=== PATIENT | female | born 1960 | race African-American/Black ===

== ENCOUNTER 2018-04-01 11:08 | Inpatient (IN) | payer BC ==
[~2018-04-01] VITALS: Ht 172.7 cm; Wt 118.4 kg
--- OUTSIDE RECORDS SUMMARY | 2018-04-01 11:11 | XMS REPORT | Clinical Summary ---
Author Author [facility] Organization [facility] Address Unknown Phone Unavailable Care Team Providers Care Marketing Writer Name Role Phone Aramis Ngo MD PCP Allergies Comments Active Allergy Reactions Severity Noted Date Penicillins Rash Low 07/11/2016 Medications End Date Status Medication Sig Dispensed Refills Start Date Active anastrozole (ARIMIDEX) 1 daily. 0 mg chemo tablet 7 Active atorvastatin (LIPITOR) 20 TAKE 1 TABLET 3 MG tablet BY MOUTH AT 7 BEDTIME DIRECTED Active pantoprazole (PROTONIX) Take 40 mg by 3 40 MG EC tablet mouth every 7 morning. Active triamterene-hydrochloroth Take 1 0 iazid (DYAZIDE) 37.5-25 capsule by 7 mg per capsule mouth once daily. Active aspirin (ECOTRIN) 81 MG Take 81 mg by 0 enteric coated tablet mouth daily. Active SULFAMETHOXAZOLE, BULK, 1 tablet 2 0 MISC (two) times a day. Active Problems Problem Noted Date Personal history of malignant neoplasm of breast 09/13/2016 Social History Date Tobacco Use Types Packs/Day Years Used Never Smoker Smokeless Tobacco: Never Used Alcohol Use Drinks/Week oz/Week Comments Yes rarely Sex Assigned at Date Recorded Not on file Industry Job Start Date Occupation Not on file Not on file Not on file Travel End Travel History Travel Start No recent travel history available. Last Filed Vital Signs Not on file Plan of Treatment Health Maintenance Due Date Last Done Comments CERVICAL CANCER SCREENING 06/10/1980 BREAST CANCER SCREENING 06/10/2009 COLON CANCER SCREENING 06/10/2009 SHINGLES VACCINES (1 of 06/10/2009 2) INFLUENZA VACCINE 10/23/2017 Implants Device Identifier Shelf Expiration Date Model / Serial / Lot Implanted Type Area Manufactur er 2229 / / Drain Wound Hbls Round Radopaq Surgical N/A: N/A Trocar Nadia White 0.18in 15fr - Implants; [id number] Expanders; Implanted: 09/13/2016 (Quantity not Extenders; on file) Surgical Wires 2229 / / Drain Wound Hbls Round Radopaq Surgical N/A: N/A Trocar Nadia White 0.18in 15fr - Implants; [id number] Expanders; Implanted: 09/13/2016 (Quantity not Extenders; on file) Surgical Wires 2229 / / Drain Wound Hbls Round Radopaq Surgical N/A: N/A Trocar Nadia White 0.18in 15fr - Implants; [id number] Expanders; Implanted: 09/13/2016 (Quantity not Extenders; on file) Surgical Wires 2229 / / Drain Wound Hbls Round Radopaq Surgical N/A: N/A Trocar Nadia White 0.18in 15fr - Implants; [id number] Expanders; Implanted: 09/13/2016 (Quantity not Extenders; on file) Surgical Wires 2229 / / Drain Wound Hbls Round Radopaq Surgical N/A: N/A Trocar Nadia White 0.18in 15fr - Implants; [id number] Expanders; Implanted: 09/13/2016 (Quantity not Extenders; on file) Surgical Wires 2229 / / Drain Wound Hbls Round Radopaq Surgical N/A: N/A Trocar Nadia White 0.18in 15fr - Implants; [id number] Expanders; Implanted: 09/13/2016 (Quantity not Extenders; on file) Surgical Wires [id number] / / [employer] Programmer Flow Vessel 3.5mm Assembly Surgical Right: N/A MICRO - [id number] Implants; COMPANIES Implanted: Qty: 1 on 09/13/2016 by Expanders; Nas Walter MD PhD Extenders; Surgical Wires [id number] / / [employer] Programmer Anstc Artrl Flow 3mm Hear Surgical Left: N/A MICRO - [id number] Implants; COMPANIES Implanted: Qty: 1 on 09/13/2016 by Expanders; Nas Walter MD PhD Extenders; Surgical Wires 2229 / / Drain Wound Hbls Round Radopaq Surgical N/A: N/A Trocar Nadia White 0.18in 15fr - Implants; [id number] Expanders; Implanted: 12/25/2016 (Quantity not Extenders; on file) Surgical Wires 2229 / / Drain Wound Hbls Round Radopaq Surgical N/A: N/A Trocar Nadia White 0.18in 15fr - Implants; [id number] Expanders; Implanted: 12/25/2016 (Quantity not Extenders; on file) Surgical Wires Results Not on fileafter 03/31/2017 Insurance Payer Benefit Subscriber ID Type Phone Address Plan / Group BCBS BCBS xxxxxxxxxxxx PPO CHOICE PPO/JOE ROMERO PPO Surgery Advance Directives Patient has advance care planning documents on file. For more information, reyna riggins contact: Kavon Hercules [address] [place] [address]
--- OUTSIDE RECORDS SUMMARY | 2018-04-01 11:11 | XMS REPORT ---
Author Author [facility] Address Unknown Phone Unavailable Care Team Providers Care Vinyl Welder And Fabricator Name Role Phone Unavailable Unavailable Payers Payer Name Policy Type Policy Number Effective Date Expiration Date Problems This patient has no known problems. Allergies, Adverse Reactions, Alerts Allergy Name Allergy Type Status Severity Reaction(s) Onset Date Inactive Date Treating Clinician Comments Penicillins DA Active U 2015-12-01 00:00:00 cefepime DA Active MO 2015-12-01 00:00:00 Medications This patient has no known medications.
[2018-04-01 11:56] LABS: BASOPHILS % 0.6 % (0.0-1.0); EOSINOPHILS % 0.6 % (0.0-6.0); HEMATOCRIT 41.2 % (34.2-44.1); HEMOGLOBIN 13.4 g/dL (12.0-16.0); LYMPHOCYTES # (AUTO) 0.9 (1.0-3.2); LYMPHOCYTES % 24.6 % (18.0-39.1); MEAN CORPUSCULAR HEMOGLOBIN 29.6 pg (28-32); MEAN CORPUSCULAR HGB CONC 32.5 g/dL (31-35); MEAN CORPUSCULAR VOLUME 91.2 fL (81-99); MONOCYTES # (AUTO) 0.5 (0.2-0.8); MONOCYTES % 14.7 % (4.4-11.3); NEUTROPHILS # (AUTO) 2.1 (2.1-6.9); NEUTROPHILS % 59.2 % (38.7-80.0); PLATELET COUNT 283 x10e3/uL (140-360); RED BLOOD COUNT 4.52 x10e6/uL (3.6-5.1); RED CELL DISTRIBUTION WIDTH 13.2 % (11.7-14.4)
[2018-04-01 12:07] LABS: INR 0.95; PROTHROMBIN TIME 13.5 seconds (11.9-14.5)
[2018-04-01 12:15] LABS: ANION GAP 14.5 mmol/L (8-16); BLOOD UREA NITROGEN 14 mg/dL (7-26); BUN/CREATININE RATIO 16 (6-25); CALCIUM 10.3 mg/dL (8.4-10.2); CARBON DIOXIDE 25 mmol/L (22-29); CHLORIDE 102 mmol/L (98-107); CREATININE, SERUM 0.87 mg/dL (0.57-1.11); EST GLOMERULAR FILTRATION RATE > 60 ML/MIN (60-); GLUCOSE 89 mg/dL (74-118); POTASSIUM 3.5 mmol/L (3.5-5.1); SODIUM 138 mmol/L (136-145)
--- NOTE | 2018-04-01 12:17 | NUR ---
IV PLACED TO PATIENT L. HAND, PER PATIENT RECOMMENDATION; PATIENT STATES VEINS AREN'T GOOD IN EITHER ARM AND POINTED TO L. HAND FOR IV STICK
--- NOTE | 2018-04-01 13:12 | Diagnostic Imaging Report ---
EXAMINATION: CHEST 2 VIEWS INDICATION: Assess for fluid. COMPARISON: None FINDINGS: TUBES and LINES: None. LUNGS/PLEURA: Low lung volumes which decreases sensitivity and specificity for pathology. There is perihilar fullness and indistinctness of the pulmonary vasculature. There is a moderate left and a small right pleural effusion. Patchy opacities are present at the lung bases. No evidence of pneumothorax. HEART AND MEDIASTINUM: Mild enlargement of the cardiomediastinal silhouette. BONES AND SOFT TISSUES: No acute osseous lesion. Surgical clips project over the left axilla. UPPER ABDOMEN: No free air under the diaphragm. IMPRESSION: Mild pulmonary interstitial edema with moderate left and small right pleural effusion with associated patchy opacities of the lung bases, likely atelectasis. Signed by: Dr. Tenzin Stapleton MD on 04/01/2018 1:09 PM
--- OUTSIDE RECORDS SUMMARY | 2018-04-01 15:03 | XMS REPORT | Clinical Summary ---
Author Author [facility] Organization [facility] Address Unknown Phone Unavailable Care Team Providers Care Men'S Furnishings Salesperson Name Role Phone Aramis Ngo MD PCP [...] Trocar Nadia White 0.18in 15fr - Implants; [id number] Expanders; Implanted: 09/13/2016 (Quantity not Extenders; on file) Surgical Wires 2229 / / Drain Wound Hbls Round Radopaq Surgical N/A: N/A Trocar Nadia White 0.18in 15fr - Implants; [id number] Expanders; Implanted: 09/13/2016 (Quantity not Extenders; on file) Surgical Wires 2229 / / Drain Wound Hbls Round Radopaq Surgical N/A: N/A Trocar Nadia White 0.18in 15fr - Implants; [id number] Expanders; Implanted: 09/13/2016 (Quantity not Extenders; on file) Surgical Wires 2229 / / Drain Wound Hbls Round Radopaq Surgical N/A: N/A Trocar Nadia White 0.18in 15fr - Implants; [id number] Expanders; Implanted: 09/13/2016 (Quantity not Extenders; on file) Surgical Wires 2229 / / Drain Wound Hbls Round Radopaq Surgical N/A: N/A Trocar Nadia White 0.18in 15fr - Implants; [id number] Expanders; Implanted: 09/13/2016 (Quantity not Extenders; on file) Surgical Wires 2229 / / Drain Wound Hbls Round Radopaq Surgical N/A: N/A Trocar Nadia White 0.18in 15fr - Implants; [id number] Expanders; Implanted: 09/13/2016 (Quantity not Extenders; on file) Surgical Wires [id number] / / Metal Sash Setter Flow Vessel 3.5mm Assembly Surgical Right: N/A MICRO - [id number] Implants; COMPANIES Implanted: Qty: 1 on 09/13/2016 by Expanders; Nas Walter MD PhD Extenders; Surgical Wires [id number] / / Metal Sash Setter Anstc Artrl Flow 3mm Hear Surgical Left: N/A MICRO - [id number] Implants; COMPANIES Implanted: Qty: 1 on 09/13/2016 by Expanders; Nas Walter MD PhD Extenders; Surgical Wires 2229 / / Drain Wound Hbls Round Radopaq Surgical N/A: N/A Trocar Nadia White 0.18in 15fr - Implants; [id number] Expanders; Implanted: 12/25/2016 (Quantity not Extenders; on file) Surgical Wires 2229 / / Drain Wound Hbls Round Radopaq Surgical N/A: N/A Trocar Nadia White 0.18in 15fr - Implants; [id number] Expanders; Implanted: 12/25/2016 (Quantity not Extenders; on file) Surgical Wires Results Not on fileafter 03/31/2017 Insurance Payer Benefit Subscriber ID Type Phone Address Plan / Group BCBS BCBS xxxxxxxxxxxx PPO CHOICE PPO/JOE ROMERO PPO Surgery Advance Directives Patient has advance care planning documents on file. For more information, reyna riggins contact: Kavon Hercules [address] [facility] [place] [address]
--- NOTE | 2018-04-01 15:50 | NUR ---
PATIENT SENT TO IR FOR THORACENTESIS; UNCERTAIN OF TIME THAT PATIENT WENT TO PROCEDURE, BUT SPOKE WITH IR NURSE REGARDING CONSENTS NOT BEING COMPLETED; INFORMED IR THAT PATIENT WAS NOT CONSENT DUE TO UNCERTAINTY OF PROCEDURE AND PATIENT WAS NOT IN ROOM YET;
--- NOTE | 2018-04-01 17:52 | Diagnostic Imaging Report ---
Procedure: Ultrasound-guided left diagnostic and therapeutic thoracentesis teletype or varitype keyboard operator: Tenzin Stapleton MD Pre-operative diagnosis: Large left pleural effusion. Post-operative diagnosis: Small left pleural effusion status post thoracentesis. Sedation: Local (1% subcutaneous lidocaine) Estimated blood loss: Minimal Implants: None TECHNIQUE/FINDINGS: Informed consent was obtained from the patient and documented in the medical record. The patient was placed in the upright position. The left posterior chest was prepped and draped in standard sterile fashion. Initial ultrasound demonstrated large left pleural effusion. Subsequently, 1% lidocaine was infiltrated into the skin and subcutaneous tissues for local anesthesia. Then under continuous sonographic guidance, a 5 Fr catheter was advanced into the left pleural space. The catheter was advanced off the needle and connected to vacuum bottle with subsequent evacuation of 1000 cc of serous fluid. The catheter was removed and a sterile, occlusive dressing was applied. Sample was sent to the lab. The patient tolerated the procedure well. IMPRESSION: Large left pleural effusion. Ultrasound-guided left diagnostic and therapeutic thoracentesis with removal of 1000 cc of serous fluid. Small residual pleural effusion post procedurally. Signed by: Dr. Tenzin Stapleton MD on 04/01/2018 5:49 PM
--- NOTE | 2018-04-01 17:52 | Diagnostic Imaging Report ---
Procedure: Ultrasound-guided left diagnostic and therapeutic thoracentesis punch press operator helper: Tenzin Stapleton MD Pre-operative diagnosis: Large left pleural effusion. Post-operative diagnosis: Small left pleural effusion status post thoracentesis. Sedation: Local (1% subcutaneous lidocaine) Estimated blood loss: Minimal Implants: None TECHNIQUE/FINDINGS: Informed consent was obtained from the patient and documented in the medical record. The patient was placed in the upright position. The left posterior chest was prepped and draped in standard sterile fashion. Initial ultrasound demonstrated large left pleural effusion. Subsequently, 1% lidocaine was infiltrated into the skin and subcutaneous tissues for local anesthesia. Then under continuous sonographic guidance, a 5 Fr catheter was advanced into the left pleural space. The catheter was advanced off the needle and connected to vacuum bottle with subsequent evacuation of 1000 cc of serous fluid. The catheter was removed and a sterile, occlusive dressing was applied. Sample was sent to the lab. The patient tolerated the procedure well. IMPRESSION: Large left pleural effusion. Ultrasound-guided left diagnostic and therapeutic thoracentesis with removal of 1000 cc of serous fluid. Small residual pleural effusion post procedurally. Signed by: Dr. Tenzin Stapleton MD on 04/01/2018 5:49 PM
--- NOTE | 2018-04-01 17:56 | Diagnostic Imaging Report ---
EXAMINATION: CHEST XRAY POST PROCEDURE INDICATION: Status post left thoracentesis. COMPARISON: Chest radiograph 04/01/2018 at 1240PM. FINDINGS: TUBES and LINES: None. LUNGS/PLEURA: Low lung volumes which decreases sensitivity and specificity for pathology. There is perihilar fullness and indistinctness of the pulmonary vasculature. Status post interval left thoracentesis with residual small left pleural effusion. Persistent small right pleural effusion. Patchy opacities at the lung bases. No evidence of pneumothorax. HEART AND MEDIASTINUM: Mild enlargement of the cardiomediastinal silhouette. BONES AND SOFT TISSUES: No acute osseous lesion. Surgical clips project over the left axilla. UPPER ABDOMEN: No free air under the diaphragm. IMPRESSION: Status post left-sided thoracentesis with decreased left-sided pleural effusion, now small. No evidence of pneumothorax. Mild pulmonary interstitial edema with small right pleural effusion. Patchy opacities at the lung bases, likely atelectasis, although pneumonia is possible in the appropriate clinical context. Signed by: Dr. Tenzin Stapleton MD on 04/01/2018 5:52 PM
[2018-04-01 18:21] VITALS: BP 141/100
--- NOTE | 2018-04-01 18:33 | NUR ---
Received patient. Patient A/O X3, short of breath. Bowel movement this morning, bowel sounds present. Patient is ambulatory. Bilateral diminished breath sounds, left side is more diminished. Patient complaint of pain during cough. Dressing on left lower back from thoracentesis intact. Left limb alert. Right 20 gauge in AC, saline locked. Call light in reach, bed in lowest position, side rails up x2, bed wheels locked. Will continue to monitor.
[2018-04-01 19:59] LABS: BODY FLUID APPEARANCE CLOUDY; BODY FLUID COLOR RED; BODY FLUID TYPE PLEURAL
[2018-04-01 20:00] VITALS: BP 150/91
[2018-04-01 20:02] LABS: RBC,BODY FLUID 6555 cells/uL; WBC,BODY FLUID 65 cells/uL
[2018-04-01] MEDS: MORPHINE SULFATE INJ 4 MG/ML INJ IV PRN (20:41)
[2018-04-01 21:59] LABS: LYMPHOCYTES,BODY FLUID 10 %; MONO/MACROPHG,BODY FLUID 0 %; NEUTROPHILS,BODY FLUID 90 %
[2018-04-02] VITALS (7 sets, daily range): BP systolic 121–141; BP diastolic 70–85
[2018-04-02] MEDS: VANCOMYCIN 1GM/NS 250 ML 250 ML IV SCH ×4 (03:20→21:00)
[2018-04-02] MEDS ORDERED: ATORVASTATIN CA20 MG PO (06:01)
[2018-04-02] MEDS ORDERED: ANASTROZOLE1 MG (06:02)
[2018-04-02] MEDS ORDERED: ASPIRIN81 MG (06:02)
[2018-04-02] MEDS ORDERED: DYAZIDE 37.5-21 EACH (06:02)
[2018-04-02] MEDS ORDERED: PANTOPRAZOLE SO40 MG PO (06:02)
[2018-04-02 06:04] LABS: BASOPHILS % 0.8 % (0.0-1.0); EOSINOPHILS % 1.1 % (0.0-6.0); HEMATOCRIT 41.4 % (34.2-44.1); HEMOGLOBIN 13.4 g/dL (12.0-16.0); LYMPHOCYTES # (AUTO) 0.9 (1.0-3.2); MEAN CORPUSCULAR HEMOGLOBIN 29.6 pg (28-32); MEAN CORPUSCULAR HGB CONC 32.4 g/dL (31-35); MEAN CORPUSCULAR VOLUME 91.4 fL (81-99); MONOCYTES # (AUTO) 0.5 (0.2-0.8); MONOCYTES % 13.1 % (4.4-11.3); NEUTROPHILS # (AUTO) 2.1 (2.1-6.9); NEUTROPHILS % 58.7 % (38.7-80.0); PLATELET COUNT 287 x10e3/uL (140-360); RED BLOOD COUNT 4.53 x10e6/uL (3.6-5.1); RED CELL DISTRIBUTION WIDTH 13.2 % (11.7-14.4)
[2018-04-02 06:20] LABS: ANION GAP 13.3 mmol/L (8-16); BLOOD UREA NITROGEN 13 mg/dL (7-26); BUN/CREATININE RATIO 15 (6-25); CALCIUM 10.1 mg/dL (8.4-10.2); CARBON DIOXIDE 24 mmol/L (22-29); CHLORIDE 101 mmol/L (98-107); CREATININE, SERUM 0.87 mg/dL (0.57-1.11); EST GLOMERULAR FILTRATION RATE > 60 ML/MIN (60-); GLUCOSE 96 mg/dL (74-118); POTASSIUM 3.3 mmol/L (3.5-5.1); SODIUM 135 mmol/L (136-145)
--- NOTE | 2018-04-02 06:27 | Diagnostic Imaging Report ---
CHEST SINGLE (PORTABLE), 04/02/2018 7:00 AM Technique: CHEST SINGLE (PORTABLE) Comparison: Previous day Clinical history: Pleural effusion Findings: See Impression Impression: 1. Lines/Tubes: Left axillary clips 2. Partially layering pleural effusions with associated atelectasis and/or edema. Cardiomediastinal silhouette is obscured. Signed by: Dr Yolanda Oliveira MD on 04/02/2018 6:24 AM
[2018-04-02] MEDS ORDERED: POTASSIUM CHLORIDE 20MEQ/100ML 100 ML IV ONE (09:00)
[2018-04-02] MEDS ORDERED: AZITHROMYCIN 500MG/NS 250 ML 250 ML IV SCH (09:00)
[2018-04-02] MEDS ORDERED: CEFTRIAXONE SOD 1 GM/NS 50 ML 50 ML IV SCH (09:30)
[2018-04-02] MEDS ORDERED: SODIUM CHLORIDE 0.9% 250ML 250 ML ONE (09:54)
[2018-04-02] MEDS: SODIUM CHLORIDE FLUSH 10 ML SYR INJ PRN ×2 (10:26→11:25)
[2018-04-02] MEDS: ONDANSETRON HCL INJ 2 MG/ML VIAL IV PRN (11:25)
[2018-04-02] MEDS: MORPHINE SULFATE INJ 4 MG/ML INJ IV PRN (11:26)
--- NOTE | 2018-04-02 12:34 | NUR ---
PAGED DR. Celena MATHEWS, TO ASK HIM IF HOME MEDICATIONS COULD BE RESUMED, RECEIVED ORDERS TO START PATIENT'S HOME MEDICATIONS.
--- NOTE | 2018-04-02 13:17 | Consultation ---
DATE OF CONSULTATION: April 02, 2018 PULMONARY CONSULTATION REASON FOR CONSULTATION: Pleural effusion. ATTENDING PHYSICIAN: Dr. Bridgett Anderson. HISTORY OF PRESENT ILLNESS: Ms. Del Castillo is a 57-year-old woman with a history of breast cancer diagnosed in approximately 2016. She was treated with a mastectomy, chemotherapy and radiation. She subsequently had reconstructive surgery in about 2017 or so and has had nothing for the last year. She has been maintained on anastrozole. She has been having increasing shortness of breath for the last couple weeks, some dry cough at times but no fevers, chills, night sweats or weight loss. She denies chest pain. She was found to have a pleural effusion on the left side and had a thoracentesis here. She was also treated for pneumonia with Levaquin by her PCP. PAST MEDICAL HISTORY: In addition to the breast cancer she has hypertension, hypercholesterolemia and reflux. PAST SURGICAL HISTORY: Except as described above she has had a tubal ligation. SOCIAL HISTORY: Negative for tobacco. She does drink on rare occasion. There is no history of drug use. 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 FAMILY HISTORY: Noncontributory. REVIEW OF SYSTEMS: As described above. PHYSICAL EXAMINATION VITAL SIGNS: She is afebrile. Heart rate is around 114, respiratory rate 16, and oxygen saturation is 96%, blood pressure 132/82. GENERAL APPEARANCE: This is a pleasant woman sitting up in the hospital bed. HEENT: Head is normocephalic, atraumatic. Pupils round and reactive. Mucous membranes are moist. NECK: Supple. Trachea is midline. There is no lymphadenopathy. HEART: Has a regular rate and rhythm without murmurs, rubs or gallops. CHEST: Has decreased breath sounds on the left, is otherwise clear on the right. ABDOMEN: Soft, nontender. EXTREMITIES: Have no cyanosis, clubbing or edema. SKIN: Warm and dry without rash. NEUROLOGICALLY: She is awake, alert and nonfocal. Insight is appropriate. Speech is clear. LAB AND IMAGING DATA: Reviewed. She had a chest x-ray yesterday that shows some mild pulmonary interstitial change with a right greater than left pleural effusion. There were additional patchy opacities of the left base. She had a thoracentesis done today as well, of which 1000 mL of fluid was removed from the left chest. Coags are normal. Chemistry is not particularly remarkable. Her calcium is mildly elevated at 10.3. BUN and creatinine are 14 and 0.87. White count, she is leukopenic and has monocytosis. Hemoglobin and hematocrit are 13 and 41. The thoracentesis fluid was red in color, cloudy, 65 white blood cells, over 6000 red blood cells with 90% neutrophils and 10% lymphocytes and a few macrophages seen on the slide. Total protein is 5.3. LDH is 131. ASSESSMENT: 1. Pleural effusion bilateral, left greater than right. Etiology is unclear. It is an exudate, as the protein is markedly elevated. Etiology or differential includes parapneumonic, malignancy, pulmonary embolism most commonly, could be also secondary to rheumatologic disease. 2. Breast cancer, personal history. 3. Shortness of breath RECOMMENDATIONS AND PLAN: Will follow the pleural fluid cytology. Will get a CT angio. Further recommendations pending results and findings. Case was discussed with the nurse and plan with the patient. Job#: [id number] EV MTDD
--- NOTE | 2018-04-02 20:00 | NUR ---
Patient visited in room during nursing rounds. Pt alert and oriented x3. at bedside. Right upper arm IV appear to be infiltrated and was taken out. Charge nurse asked for assistance to start new IV. Patient ambulatory prn. No dyspnea. Band aid on left upper back s/p thoracentesis. Call dong within reach.
--- NOTE | 2018-04-02 21:00 | NUR ---
New IV attempted by Charge nurse (TARSHA Potter) 3 times but unsuccessful. New IV attempted by TARSHA Jones twice but unsuccessful. Scheduled Vanc IV will be delayed till new IV placed.
[2018-04-02] MEDS: ATORVASTATIN 20 MG TAB PO SCH (21:40)
--- NOTE | 2018-04-02 22:00 | NUR ---
New IV attempted by primary nurse (TARSHA Goodrich) twice but unsuccessful.
--- NOTE | 2018-04-02 23:00 | NUR ---
New IV attempted by ER nurse (Princess) twice but unsuccessful.
--- NOTE | 2018-04-03 02:50 | NUR ---
New IV placed by another ER nurse and successfully placed on right hand 20g. IV Vanc to be restarted and IV pain med to be given per pt request.
--- NOTE | 2018-04-03 03:00 | NUR ---
Patient agreed to have central line placement (possibly on neck) this morning and pt signed consent form. Radiology dept aware.
[2018-04-03] MEDS: MORPHINE SULFATE INJ 4 MG/ML INJ IV PRN (03:20)
[2018-04-03] MEDS: VANCOMYCIN 1GM/NS 250 ML 250 ML IV SCH ×2 (03:30→15:30)
[2018-04-03 04:00] VITALS: BP 129/79
[2018-04-03 05:46] LABS: HEMATOCRIT 40.3 % (34.2-44.1); MEAN CORPUSCULAR HEMOGLOBIN 29.7 pg (28-32); MEAN CORPUSCULAR HGB CONC 32.3 g/dL (31-35); PLATELET COUNT 278 x10e3/uL (140-360); RED BLOOD COUNT 4.38 x10e6/uL (3.6-5.1); RED CELL DISTRIBUTION WIDTH 13.1 % (11.7-14.4)
[2018-04-03] MEDS: AZITHROMYCIN 500MG/NS 250 ML 250 ML IV SCH (05:53)
[2018-04-03 06:14] LABS: ALANINE AMINOTRANSFERASE 29 IU/L (0-55); ALBUMIN 2.9 g/dL (3.5-5.0); ALBUMIN/GLOBULIN RATIO 0.7 (0.8-2.0); ALKALINE PHOSPHATASE 106 IU/L (40-150); ANION GAP 12.6 mmol/L (8-16); BLOOD UREA NITROGEN 10 mg/dL (7-26); BUN/CREATININE RATIO 12 (6-25); CALCIUM 9.9 mg/dL (8.4-10.2); CARBON DIOXIDE 24 mmol/L (22-29); CHLORIDE 100 mmol/L (98-107); CREATININE, SERUM 0.83 mg/dL (0.57-1.11); EST GLOMERULAR FILTRATION RATE > 60 ML/MIN (60-); GLUCOSE 94 mg/dL (74-118); POTASSIUM 3.6 mmol/L (3.5-5.1); SODIUM 133 mmol/L (136-145)
--- NOTE | 2018-04-03 07:05 | NUR ---
Received patient sitting upright in bed, call light within reach. AAOX4 to time, person, place. Respirations even and unlabored. Instructed patient to use call light for assistance. Voiced understanding. Will continue to monitor.
[2018-04-03 08:00] VITALS: BP 122/72
[2018-04-03 09:15] VITALS: BP 122/72
[2018-04-03] MEDS: ANASTROZOLE 1 MG TAB PO SCH (09:18)
[2018-04-03] MEDS: PANTOPRAZOLE SOD 40 MG TABEC PO SCH (09:18)
[2018-04-03] MEDS: ASPIRIN 81 MG CHEW TAB PO SCH (09:18)
[2018-04-03] MEDS: TRIAMTERENE/HCTZ 37.5-25 MG TAB PO SCH (09:18)
--- NOTE | 2018-04-03 09:18 | NUR ---
Per radiology, patient was "too anxious to have central cath placed, will attempt at 1pm" Dr. Anderson aware. See orders
--- NOTE | 2018-04-03 09:37 | Diagnostic Imaging Report ---
Date and Time: 04/03/2018 Procedure: Right internal jugular central venous catheter, aborted universal grinder operator: Dr. Umanzor Pre-operative diagnosis: Poor intravenous access Post-operative diagnosis: Poor intravenous access Conscious Sedation: None Additional Medications: Lidocaine 1% for local anesthesia Fluoroscopy time: 0 Contrast used: 0 Estimated blood loss: Less than 10 cc Blood products administered: None Specimens: None Implants: None DISCUSSION: Informed consent was obtained and documented in the medical record after discussion of risks and benefits. The patient was placed in the supine position on the fluoroscopic table. Preliminary sonographic evaluation confirmed patency of the right internal jugular vein, evidenced by compressibility. The right cervical region was then prepped and draped in the standard sterile fashion. 1% lidocaine was infiltrated into the skin and subcutaneous tissues for local anesthesia. Then under continuous sonographic guidance, the right internal jugular vein was accessed with an 18-gauge singlewall needle. A permanent sonographic image was stored in the medical record. Shortly after obtaining access into the right internal jugular vein, the patient became extremely agitated, and proceeded to move to the sitting position and contaminate the sterile field. At this point, the needle was quickly removed from the patient and hemostasis was achieved with manual compression. The patient declined to continue with the procedure. A final sonographic image shows no significant perivenous hematoma. A sterile dressing was applied. FINDINGS: Patent right internal jugular vein. IMPRESSION: Aborted placement of right internal jugular central venous catheter secondary to extreme patient agitation as detailed above. Consideration may be given to repeat attempt at central venous catheter placement with moderate sedation, or placement of a peripherally inserted central catheter (PICC). Signed by: Dr. Aramis Umanzor M.D. on 04/03/2018 9:33 AM
[2018-04-03 10:30] LABS: EOSINOPHILS % (MANUAL) 1 % (0-7); LYMPHOCYTES % (MANUAL) 30 % (19-48); MONOCYTES % (MANUAL) 9 % (3.4-9.0); NEUTROPHILS % (MANUAL) 59 % (40-74)
[2018-04-03 10:31] LABS: ANISOCYTOSIS SLIGHT; HYPOCHROMASIA SLIGHT; PLATELET ESTIMATE ADEQUATE; RBC MORPHOLOGY COMMENT NORMAL
[2018-04-03 10:32] LABS: PLATELET MORPHOLOGY COMMENT NORMAL
--- NOTE | 2018-04-03 10:34 | History and Physical ---
Nguyen Del Castillo is a 57-year-old black female who was fairly symptomatic with shortness of breath with bilateral pleural effusions. Subsequently, was sent to the ER. The patient was subsequently admitted. I have spoken to , interventional radiologist, who tapped her today since the patient was very symptomatic. SOCIAL HISTORY: Noncontributory. FAMILY HISTORY: Noncontributory. HISTORY OF PAST ILLNESS: History of breast cancer, stage III, diagnosed in November of 2014. The patient had neoadjuvant chemotherapy since this was a stage III cancer with regional lymph nodes. Subsequently, had a mastectomy. There was residual invasive ductal carcinoma, 1.7 cm. Eight axillary lymph nodes were negative. Subsequently, the patient had reconstruction. The patient was also treated with radiation therapy, which she had completed on February 23, 2016. Reconstruction was done on September 13, 2016. SOCIAL HISTORY: Noncontributory. FAMILY HISTORY: Noncontributory. ALLERGIES: EVEN IT IS RECORDED NONE HERE, SHE CLAIMS THAT SHE HAD A RASH WITH PENICILLIN. REVIEW OF SYSTEMS HEENT: Normal. CARDIAC: Normal. RESPIRATORY: At the present time, bilateral pleural effusions. GI: Normal. : Normal. MUSCULOSKELETAL: Normal. SKIN AND BREASTS: Normal. PHYSICAL EXAMINATION GENERAL: A large built female with no palpable adenopathy. HEART: Within normal limits. LUNGS: Diminished breath sounds at both bases. ABDOMEN: Obese. RECTAL: Deferred. AN/SQQ 89(V)15 SONAR SYSTEM JOURNEYMAN: Essentially normal. EXTREMITIES: Essentially normal. IMPRESSION 1. Status post left mastectomy, stage IV breast cancer with subcarinal lymph nodes. 2. History of gastroesophageal reflux disease. 3. Hypertension. 4. Pleural effusions. PLAN: Tap the effusion. Further treatment depending on the diagnosis. Clinically, she had bronchopneumonia. She was treated as an outpatient. I will continue with treatment. Appropriate cultures will be done. Pulmonology consultation will be obtained. Job#: [id number] RI cc:DOROTHY AVERY MD
[2018-04-03 14:52] LABS: ANION GAP 12.4 mmol/L (8-16); POTASSIUM 3.4 mmol/L (3.5-5.1)
--- NOTE | 2018-04-03 15:20 | NUR ---
CASE MANAGEMENT INITIAL ASSESSMENT Relief Charge Nurse to bedside to discuss plan of care with patient/family. CM/SW role and care transitions discussed. Anticipated discharge plan discussed along with duration of care. CM discussed patients right to make decisions in care. CM/SW work hours given. Patient lives: PATIENT LIVES IN [place], [place] WITH IN [address] STORY HOME Admit/Transfer: ED POA/Emergency contact: : BRITNEY HERNANDEZ: [phone]/ DAUGHTER KATY WRIGHT: [phone] Current/Previous Home Health: NONE PCP/Follow-up Care: DR. DOROTHY AVERY Current/Previous DME: NONE Other Services: N/A Employment Status: EMPLOYED Areas of Concerns: NONE AT THIS TIME Referral Needs: NONE AT THIS TIME Education Needs: N/A IMM/ASHLEY given and signed (if applicable): N/A Goal for discharge: DISCHARGE HOME WITH NO NEEDS CM left business card at the bedside with contact information. Name and number was also written on the patients whiteboard. Patient verbalized understanding of discussion. CM will follow-up with ongoing discharge and transition of care needs.
[2018-04-03 15:30] VITALS: BP 126/75
[2018-04-03] MEDS ORDERED: SODIUM CHLORIDE 0.9% 250ML 250 ML ONE (15:48)
--- NOTE | 2018-04-03 16:20 | Diagnostic Imaging Report ---
Examination: Single AP view of the chest. COMPARISON: Portable chest 04/02/2018 INDICATION: PICC line placement, pleural effusions IMPRESSION: 1. Lines and Tubes: Interval placement of right-sided PICC line, which has distal tip projecting approximately the proximal to mid SVC. 2. Otherwise, no significant interval change since the prior exam. Signed by: Dr. Timur Rahman M.D. on 04/03/2018 4:17 PM
[2018-04-03 16:55] VITALS: BP 125/86
--- NOTE | 2018-04-03 17:39 | Diagnostic Imaging Report ---
EXAM: CT Chest WITH contrast 04/03/2018 12:11 PM INDICATION: Pulmonary embolism. Shortness of breath. Pleural effusion. Breast cancer. COMPARISON: None TECHNIQUE: Chest was scanned utilizing a multidetector helical scanner from the lung apex through the level of the adrenal glands without administration of IV contrast. Coronal and sagittal reformations were obtained. Pulmonary embolism protocol was performed. IV CONTRAST: 100 mL of Isovue 300 RADIATION DOSE: Total DLP: 653.82 mGy*cm Estimated effective dose: (DLP x 0.014 x size factor) mSv COMPLICATIONS: None FINDINGS: LINES/ TUBES: Right upper extremity PICC with distal tip within the low right atrium. LUNGS AND AIRWAYS: 1.8 cm nodule in the superior segment of the right lower lobe anteriorly on image 70 series 2. Bilateral pulmonary venous congestion. Pleural parenchymal density along the anterior left hemithorax suggestive of post radiation change. Lingular subsegmental atelectasis smoking, exclude underlying mass in the lingula as seen on images 60 series 2. No filling defects within the pulmonary arteries to the subsegmental level. PLEURA: Moderate volume pleural effusion bilaterally, with loculation in the left upper lobe with fluid within the interlobar fissure. HEART AND MEDIASTINUM: Suspected small lymph nodes in the left internal mammary chain as seen on axial images 36 and 37 series 2. No mediastinal, hilar or axillary lymphadenopathy. The heart is normal in size.. There is trace pericardial effusion. UPPER ABDOMEN: Limited non-contrast views of the upper abdomen show no abnormality within the visualized liver, spleen, pancreas, or kidneys. The adrenal glands are normal. BONES: Small sclerotic lesion in the T11 vertebral body is nonspecific, possibly a bone island, however, demonstrated small sclerotic metastatic focus. SOFT TISSUES: Status post left axillary lymph node dissection. IMPRESSION: 1. No pulmonary embolism to the segmental level. 2. Bilateral moderate volume pleural effusions with large loculation the left upper lobe. No pneumothorax. 3. 1.8 cm nodule in the superior segment of the right lower lobe anteriorly. Possible underlying mass in the lingula not well evaluated due to associated atelectasis. 4. Mild pulmonary venous congestion and pulmonary edema. Signed by: Dr. Boyd Covington M.D. on 04/03/2018 5:36 PM
[2018-04-03] MEDS ORDERED: IOPAMIDOL 370 MG/ML 200 ML INFUS..BTL INJ ONE (18:21)
[2018-04-03] MEDS ORDERED: SODIUM CHLORIDE 0.9% 50ML 50 ML ONE (18:21)
--- NOTE | 2018-04-03 18:30 | NUR ---
Resting in bed. No s/s of acute distress noted. Report to be given to oncoming nurse.
--- NOTE | 2018-04-03 19:50 | NUR ---
Patient visited in room during nursing rounds. Pt alert and oriented x3. Sister at bedside visiting. New PICC line on right upper arm saline locked and right hand 20g IV saline locked. Patient denies dyspnea but with mild aching pain on left upper back (previous thoracentesis insertion site). Patient ambulatory prn. No dyspnea. Call dong within reach.
[2018-04-03 20:00] VITALS: BP 154/93
[2018-04-03] MEDS: ATORVASTATIN 20 MG TAB PO SCH (20:20)
--- NOTE | 2018-04-03 20:35 | NUR ---
Paged Dr. Gonzalez (Medical Review Specialist) to report CT chest results. Awaiting on MD call back.
--- NOTE | 2018-04-03 20:41 | NUR ---
Received call back from Dr. Go Bashir (Production Trainer covering for Dr. Gonzalez). Informed Dr. Bashir of CT chest results. No new orders given.
[2018-04-04] VITALS (8 sets, daily range): BP systolic 137–164; BP diastolic 84–97
[2018-04-04] MEDS: VANCOMYCIN 1GM/NS 250 ML 250 ML IV SCH ×2 (03:26→15:30)
[2018-04-04] MEDS: AZITHROMYCIN 500MG/NS 250 ML 250 ML IV SCH (06:33)
[2018-04-04] MEDS: PANTOPRAZOLE SOD 40 MG TABEC PO SCH (08:00)
[2018-04-04] MEDS: ANASTROZOLE 1 MG TAB PO SCH (08:00)
[2018-04-04] MEDS: TRIAMTERENE/HCTZ 37.5-25 MG TAB PO SCH (08:00)
[2018-04-04] MEDS: ASPIRIN 81 MG CHEW TAB PO SCH (08:00)
[2018-04-04] MEDS ORDERED: POTASSIUM CHLORIDE 20MEQ/100ML 200 ML IV ONE (09:15)
--- NOTE | 2018-04-04 10:00 | NUR ---
SEEN BY DR MAURER, NEW ORDERS NOTED. PT TO HAVE LUNG BX SATURDAY WITH DR BENAVIDEZ
--- NOTE | 2018-04-04 10:50 | NUR ---
discharge instructions reviewed with pt and , all questions answered. discussed followup appts, no new rx ordered. #20iv removed from right hand with tip intact, pressure dressing applied. Addendum: 04/04/18 at 1111 by Ra Jose RN error, wrong pt
--- NOTE | 2018-04-04 11:10 | NUR ---
Pt left floor via w/c Addendum: 04/04/18 at 1111 by Ra Jose RN error, traci rodriguez
[2018-04-04] MEDS: FUROSEMIDE INJ 10 MG/ML 2 ML VIAL IV SCH ×2 (12:20→18:06)
[2018-04-04] MEDS: ATORVASTATIN 20 MG TAB PO SCH (21:50)
[2018-04-05] VITALS (7 sets, daily range): BP systolic 128–154; BP diastolic 78–100
[2018-04-05] MEDS: MORPHINE SULFATE INJ 4 MG/ML INJ IV PRN (01:41)
[2018-04-05] MEDS: VANCOMYCIN 1GM/NS 250 ML 250 ML IV SCH ×2 (03:25→15:00)
[2018-04-05] MEDS: AZITHROMYCIN 500MG/NS 250 ML 250 ML IV SCH (06:05)
[2018-04-05 06:48] LABS: ANION GAP 12.5 mmol/L (8-16); POTASSIUM 3.5 mmol/L (3.5-5.1)
--- NOTE | 2018-04-05 07:40 | NUR ---
Received patient and a/ox3, in bed and call light within reach, encouraged to ambulate often to prevent DVTs and denies any pains at the moment, will have a lung biopsy on Saturday, denies any SOB at the moment, will monitor.
[2018-04-05] MEDS: TRIAMTERENE/HCTZ 37.5-25 MG TAB PO SCH (08:42)
[2018-04-05] MEDS: FUROSEMIDE INJ 10 MG/ML 2 ML VIAL IV SCH ×2 (08:42→16:10)
[2018-04-05] MEDS: PANTOPRAZOLE SOD 40 MG TABEC PO SCH (08:42)
[2018-04-05] MEDS: ASPIRIN 81 MG CHEW TAB PO SCH (08:42)
[2018-04-05] MEDS: ANASTROZOLE 1 MG TAB PO SCH (08:42)
--- NOTE | 2018-04-05 09:44 | NUR ---
Call to attending and orders in place for meds r/t to oral thrush and will monitor.
[2018-04-05] MEDS: FLUCONAZOLE 100 MG TAB PO SCH (10:09)
[2018-04-05] MEDS: CARVEDILOL 12.5 MG TAB PO SCH (10:09)
--- NOTE | 2018-04-05 11:52 | NUR ---
Patient seen by attending and orders for consult to cardiology and he spoke with him earlier this morning about condition of patient.
--- NOTE | 2018-04-05 12:48 | Progress Note ---
DATE: Lung consultation on behalf of Dr. Gonzalez. SUBJECTIVE: She is a 57-year-old female. No new complaints. Reported feeling better. OBJECTIVE VITAL SIGNS: She is afebrile. Pulse 111, respiratory rate 22, blood pressure 140/81, oxygen saturation 91%. HEENT: Atraumatic. NECK: No tenderness. LUNGS: Some crackles felt after a left mastectomy. HEART: No murmurs. ABDOMEN: Soft. EXTREMITIES: No pedal edema. IMPRESSION 1. Bilateral pleural effusion, stage after left mastectomy for stage IV breast cancer. 2. Hypertension. 3. Gastroesophageal reflux disease. PLAN: Currently, the patient is on Lasix 20 b.i.d. IV, triamterene HCTZ one tablet a day, Protonix 40 q. day, Zithromax 250 mg daily IV, vancomycin daily IV, atorvastatin 20 daily p.o., and potassium being given as well. There is no for any additional recommendations. Patient looks stable. My recommendations to continue with the current treatment that is being given. Job#: [id number] MELODIE
[2018-04-05] MEDS ORDERED: POTASSIUM CHLORIDE 20 MEQ TAB CR PO NR (14:30)
--- NOTE | 2018-04-05 16:01 | NUR ---
Call to attending and reported Vanco trough 12.o and will continue Vancomycin at this time. Rounds by ophthalmic lens inspector and increased Lasix dose for better diuresis.
[2018-04-05] MEDS: SPIRONOLACTONE 25 MG TAB PO SCH (16:10)
--- NOTE | 2018-04-05 16:29 | Consultation ---
DATE OF CONSULTATION: April 05, 2018 CARDIOLOGY CONSULTATION REASON FOR CONSULTATION: Cardiomyopathy and newly-diagnosed heart failure and [id number] bilateral pleural effusions. HISTORY OF PRESENT ILLNESS: Ms. Del Castillo is a 57-year-old lady with past medical history of hypertension, essential; hypercholesterolemia; breast cancer, now the diagnosed stage IV, initially was diagnosed back in 2014. Patient's history included neoadjuvant chemotherapy as well as mastectomy to the bilateral breasts and had residual invasive ductal carcinoma and underwent further radiation therapy back in 2015. She has been on suppressive hormonal therapy and was initially seen by us back in August of 2016 where we preoperatively cleared her for major breast reconstructive surgery at [facility]. She had a surgery that lasted, complicated, for 14 hours, yet survived without any cardiopulmonary issues. Over time, patient has been progressively doing well up until approximately at around end of January where she started noticing a nonproductive cough. She felt really in the last 30 days, progressively worsening dyspnea, development of new-onset orthopnea, PND. She had been given therapy for bronchial pneumonia with antibiotic therapy; however, had not improved. She came in to this hospital with hypoxic respiratory distress, and upon her evaluation including an x-ray and CT scan, she was noted to have notable bilateral pleural effusions, moderate in size as well noticing an 1.8-mm nodule in the right lower lobe. She underwent 1-liter fluid removal thoracentesis, which has partially improved her symptoms and workup with echocardiogram was done which revealed new-onset cardiomyopathy with left ventricular EF moderately reduced at about 35 to 40%, which is notably different from her baseline echo back in August 2016 which revealed an EF of about 55 to 60%. Cardiology consultation is obtained. Patient denies any history of chest pain or discomfort. She has never had any heart attack in the past. Her last ischemic risk stratification again was in August of 2016, which was a nuclear stress test showing normal perfusion and no defects. PAST MEDICAL HISTORY 1. Hypertension, essential. 2. Hypercholesterolemia. 3. Breast cancer, as noted above. PAST SURGICAL HISTORY 1. History of tubal ligation surgery. 2. History of Port-A-Cath back in 2015. 3. History of bilateral mastectomy surgery in 2015. 4. History of large reconstructive breast surgery in 2017. FAMILY HISTORY: Mother is alive, and she is 78 and has hypertension. Father is alive at 79, has ischemic cardiomyopathy, ICD, and congestive heart failure. SOCIAL HISTORY: She is . She is a lifelong nonsmoker, denies any alcohol or illicit drug use. ALLERGIES: INCLUDE PENICILLIN CURRENT MEDICATIONS: Home medications included aspirin 81 mg daily, atorvastatin 20 mg daily, Protonix 40 mg daily, Maxzide 37.5/25 mg daily, anastrozole 1 mg daily. REVIEW OF SYSTEMS GENERAL: Positive for fatigue, malaise. Denies any fevers or chills. HEENT: No headaches, visual complaints. Has occasional dry mouth. No sore throat. RESPIRATORY: Has a productive cough of clearish sputum, exertional dyspnea with minimal activity, and significant bilateral pleural effusions as noted above with new-onset orthopnea. CARDIOVASCULAR: Denies any chest pain or discomfort. Denies any lower extremity edema. Has occasional palpitations. GI: Denies any nausea, vomiting, bright red blood per rectum, melena, hematemesis. HEMATOLOGY: No easy bruising or bleeding. : Denies any pyuria or dysuria. Has increased urinary frequency, on diuretic. MUSCULOSKELETAL: Has occasional knee pain but no leg pain. SKIN: No rashes. No open lesions. NEUROLOGIC: Good coordination, memory, and speech. No abnormalities. PSYCH: Normal mood. Normal perception . PHYSICAL EXAMINATION VITAL SIGNS: Height of 68 inches, weight of 258 pounds, BMI is 39.2. Pulse of 111, blood pressure 140/81, O2 sat 91% on room air, temperature of 97.2. GENERAL: This is a well-nourished, well-developed lady who is currently in no apparent distress. HEENT: Normocephalic, atraumatic. Pupils equal, round, and react to light. Extraocular movements are intact. Oropharynx is clear. NECK: There is elevation of jugular venous pulsation. CARDIOVASCULAR: Tachycardic. Normal S1 and S2. Soft 2/6 systolic murmur at the left lower sternal border. LUNGS: Show absent breath sounds, one-half of the lung ramirez bibasilarly. No crackles. ABDOMEN: Soft, nontender, nondistended. Normoactive bowel sounds. No hepatomegaly or splenomegaly. BACK: No costovertebral angle tenderness. EXTREMITIES: Warm with trace edema, 2+ bilateral radial and femoral pulses and 1 to 2+ pedal pulses. NEUROLOGIC: Alert and oriented x 3. Cranial nerves II through XII are intact. Strength is 5/5. She is grossly nonfocal. PSYCHIATRIC: Normal fluent speech. Appropriate affect. No anxiety or delusions. LABS: White count 3.95, hemoglobin 13.0, hematocrit 40.3, platelets of 278, sodium 137, potassium 3.5, chloride 102, bicarb 26, BUN 10, creatinine 0.83, glucose of 94, AST is 21, ALT 29, alk phose 106, total bili 0.5, albumin of 2.9, INR is 0.95. EKG reveals sinus tachycardia, otherwise nonspecific ST-T wave changes. Chest CT reveals 1.8-mm nodule in the right lower lobe anteriorly, moderate bilateral pleural effusion, and loculated effusion in the left upper lobe. No pneumothorax. DIAGNOSES 1. Bilateral pleural effusions. I definitely believe element of acute decompensated systolic heart failure, however, malignant effusion also a possibility. 2. Stage IV breast cancer. 3. Hypertension, essential. 4. Hypercholesterolemia. PLAN/RECOMMENDATIONS 1. From a cardiovascular standpoint, we will agree with putting her on the Coreg therapy, and we will try to titrate on SUZANNE or ARB in the next coming days. 2. We will aggressively diurese her with 80 IV of Lasix b.i.d., and we will await any fluid for cytology, etc. 3. Appreciate pulmonary and hematology/oncology team for their aid and management. 4. Although malignant effusion is a possibility, definitely there is a new-onset cardiomyopathy that was not previously seen on her prior echocardiograms and I believe that heart failure is a good etiology of her effusions. 5. We will go ahead and continue to follow this patient with you. Thank you for this referral. Job#: [id number] RONALDO
--- NOTE | 2018-04-05 19:04 | NUR ---
Rounds completed at this time and patient alert and responsive, sitting by the edge of the bed, no discomfort at this time, report given to on coming nurse.
[2018-04-05] MEDS: ATORVASTATIN 20 MG TAB PO SCH (21:11)
[2018-04-06] VITALS (8 sets, daily range): BP systolic 114–156; BP diastolic 70–80
[2018-04-06] MEDS: VANCOMYCIN 1GM/NS 250 ML 250 ML IV SCH (03:44)
[2018-04-06] MEDS: MORPHINE SULFATE INJ 4 MG/ML INJ IV PRN ×2 (03:45→20:10)
[2018-04-06] MEDS: AZITHROMYCIN 500MG/NS 250 ML 250 ML IV SCH (05:30)
[2018-04-06 06:01] LABS: ALANINE AMINOTRANSFERASE 27 IU/L (0-55); ALBUMIN 2.9 g/dL (3.5-5.0); ALBUMIN/GLOBULIN RATIO 0.7 (0.8-2.0); ALKALINE PHOSPHATASE 106 IU/L (40-150); ANION GAP 12.2 mmol/L (8-16); BLOOD UREA NITROGEN 10 mg/dL (7-26); BUN/CREATININE RATIO 11 (6-25); CALCIUM 9.8 mg/dL (8.4-10.2); CARBON DIOXIDE 28 mmol/L (22-29); CHLORIDE 99 mmol/L (98-107); CREATININE, SERUM 0.88 mg/dL (0.57-1.11); EST GLOMERULAR FILTRATION RATE > 60 ML/MIN (60-); GLUCOSE 95 mg/dL (74-118); POTASSIUM 3.2 mmol/L (3.5-5.1); SODIUM 136 mmol/L (136-145)
[2018-04-06 06:34] LABS: BASOPHILS % 0.8 % (0.0-1.0); EOSINOPHILS # (AUTO) 0.1 (0.0-0.4); EOSINOPHILS % 1.6 % (0.0-6.0); HEMATOCRIT 38.9 % (34.2-44.1); HEMOGLOBIN 12.8 g/dL (12.0-16.0); LYMPHOCYTES # (AUTO) 0.8 (1.0-3.2); LYMPHOCYTES % 20.9 % (18.0-39.1); MEAN CORPUSCULAR HEMOGLOBIN 29.4 pg (28-32); MEAN CORPUSCULAR HGB CONC 32.9 g/dL (31-35); MEAN CORPUSCULAR VOLUME 89.4 fL (81-99); MONOCYTES # (AUTO) 0.5 (0.2-0.8); MONOCYTES % 13.4 % (4.4-11.3); NEUTROPHILS # (AUTO) 2.3 (2.1-6.9); NEUTROPHILS % 62.5 % (38.7-80.0); PLATELET COUNT 234 x10e3/uL (140-360); RED BLOOD COUNT 4.35 x10e6/uL (3.6-5.1); RED CELL DISTRIBUTION WIDTH 12.8 % (11.7-14.4)
[2018-04-06] MEDS: SPIRONOLACTONE 25 MG TAB PO SCH ×2 (08:45→17:45)
[2018-04-06] MEDS: ANASTROZOLE 1 MG TAB PO SCH (08:45)
[2018-04-06] MEDS: ASPIRIN 81 MG CHEW TAB PO SCH (08:45)
[2018-04-06] MEDS: FLUCONAZOLE 100 MG TAB PO SCH (08:45)
[2018-04-06] MEDS: CARVEDILOL 12.5 MG TAB PO SCH (08:45)
[2018-04-06] MEDS: FUROSEMIDE INJ 10 MG/ML 2 ML VIAL IV SCH ×2 (08:45→17:45)
[2018-04-06] MEDS: THIAMINE HCL 100 MG TAB PO SCH (08:45)
[2018-04-06] MEDS: PANTOPRAZOLE SOD 40 MG TABEC PO SCH (08:45)
[2018-04-06] MEDS ORDERED: POTASSIUM CHLORIDE 20MEQ/100ML 200 ML IV ONE (10:00)
[2018-04-06] MEDS: POTASSIUM CHLORIDE 20 MEQ TAB CR PO SCH ×2 (10:50→12:00)
[2018-04-06] MEDS: LOSARTAN POTASSIUM 100 MG TAB PO SCH (10:51)
--- NOTE | 2018-04-06 11:46 | Diagnostic Imaging Report ---
EXAMINATION: PA and lateral views of the chest. COMPARISON: AP chest 04/03/2018 CLINICAL HISTORY: Pleural effusion DISCUSSION: Lines/tubes: Unchanged right-sided PICC line Lungs: Lungs are well-inflated. Bilateral lower lobe airspace opacities. Bilateral interstitial opacities extending from the sharon Pleura: Bilateral pleural effusions, left greater than right. Heart and mediastinum: Cardiac silhouette is obscured. Central pulmonary venous congestion. Bones and soft tissues: No acute bony abnormalities. IMPRESSION: Bilateral pleural effusions, left greater than right, with associated bilateral lower lobe airspace opacities, likely reflecting compressive atelectasis. Central pulmonary venous congestion and bilateral interstitial opacities extending from the hilus suggesting interstitial pulmonary edema. Signed by: Dr. Timur Rahman M.D. on 04/06/2018 11:43 AM
[2018-04-06 15:00] LABS: ANION GAP 13.3 mmol/L (8-16); POTASSIUM 4.3 mmol/L (3.5-5.1)
[2018-04-06] MEDS: VANCOMYCIN 750MG/NS 150ML IVPB 150 ML IV SCH (15:30)
[2018-04-06] MEDS ORDERED: POTASSIUM CHLORIDE 20 MEQ TAB CR PO SCH (16:00)
--- NOTE | 2018-04-06 18:59 | NUR ---
PAGED DR MAURER 1 PICC LUMEN CLOGGED, AWAITING CALLBACK
[2018-04-06] MEDS: ATORVASTATIN 20 MG TAB PO SCH (20:10)
[2018-04-07] VITALS (8 sets, daily range): BP systolic 100–139; BP diastolic 64–90
[2018-04-07] MEDS: VANCOMYCIN 750MG/NS 150ML IVPB 150 ML IV SCH ×2 (02:51→15:15)
[2018-04-07] MEDS: MORPHINE SULFATE INJ 4 MG/ML INJ IV PRN ×3 (03:15→23:19)
[2018-04-07] MEDS: AZITHROMYCIN 500MG/NS 250 ML 250 ML IV SCH (05:30)
[2018-04-07 06:00] LABS: BASOPHILS % 0.9 % (0.0-1.0); EOSINOPHILS # (AUTO) 0.1 (0.0-0.4); EOSINOPHILS % 1.8 % (0.0-6.0); HEMATOCRIT 37.3 % (34.2-44.1); HEMOGLOBIN 12.2 g/dL (12.0-16.0); LYMPHOCYTES # (AUTO) 0.8 (1.0-3.2); LYMPHOCYTES % 25.1 % (18.0-39.1); MEAN CORPUSCULAR HEMOGLOBIN 29.8 pg (28-32); MEAN CORPUSCULAR HGB CONC 32.7 g/dL (31-35); MONOCYTES # (AUTO) 0.5 (0.2-0.8); MONOCYTES % 15.3 % (4.4-11.3); NEUTROPHILS # (AUTO) 1.9 (2.1-6.9); NEUTROPHILS % 56.6 % (38.7-80.0); PLATELET COUNT 294 x10e3/uL (140-360); RED CELL DISTRIBUTION WIDTH 12.8 % (11.7-14.4)
[2018-04-07 06:21] LABS: ALANINE AMINOTRANSFERASE 26 IU/L (0-55); ALBUMIN/GLOBULIN RATIO 0.7 (0.8-2.0); ALKALINE PHOSPHATASE 106 IU/L (40-150); ANION GAP 12.8 mmol/L (8-16); BLOOD UREA NITROGEN 13 mg/dL (7-26); BUN/CREATININE RATIO 14 (6-25); CALCIUM 9.9 mg/dL (8.4-10.2); CARBON DIOXIDE 27 mmol/L (22-29); CHLORIDE 99 mmol/L (98-107); EST GLOMERULAR FILTRATION RATE > 60 ML/MIN (60-); GLUCOSE 85 mg/dL (74-118); POTASSIUM 3.8 mmol/L (3.5-5.1); SODIUM 135 mmol/L (136-145)
[2018-04-07 07:34] LABS: THYROID STIMULATING HORMONE 7.426 uIU/mL (0.350-4.940)
[2018-04-07] MEDS: ANASTROZOLE 1 MG TAB PO SCH ×2 (09:00→14:03)
[2018-04-07] MEDS: THIAMINE HCL 100 MG TAB PO SCH ×2 (09:00→14:03)
[2018-04-07] MEDS: ASPIRIN 81 MG CHEW TAB PO SCH (09:00)
[2018-04-07] MEDS: FLUCONAZOLE 100 MG TAB PO SCH (09:00)
[2018-04-07] MEDS: PANTOPRAZOLE SOD 40 MG TABEC PO SCH (09:00)
[2018-04-07] MEDS: FUROSEMIDE INJ 10 MG/ML 2 ML VIAL IV SCH ×2 (09:00→17:33)
[2018-04-07] MEDS: CARVEDILOL 12.5 MG TAB PO SCH ×2 (09:00→14:03)
[2018-04-07] MEDS: LOSARTAN POTASSIUM 100 MG TAB PO SCH ×2 (09:00→14:03)
[2018-04-07] MEDS: SPIRONOLACTONE 25 MG TAB PO SCH ×2 (09:00→17:00)
[2018-04-07] MEDS ORDERED: FENTANYL CITRATE/PF 100MCG/2 ML INJ ONE (10:43)
[2018-04-07] MEDS ORDERED: MIDAZOLAM HCL 2 MG/2 ML VIAL ONE (10:43)
--- NOTE | 2018-04-07 10:43 | NUR ---
WHEELED OFF UNIT VIA WC FOR THORACENTESIS AND LUNG BX, NO CHANGE IN CONDITION, FAMILY AT SIDE
[2018-04-07 12:50] LABS: BODY FLUID APPEARANCE SL.CLOUDY; BODY FLUID COLOR YELLOW; BODY FLUID TYPE THORACENTESIS
--- NOTE | 2018-04-07 13:00 | NUR ---
BACK IN ROOM VIA WC, UNABLE TO COMPLETE LUNG BX PER RADIOLOGY PHYSICIAN, DRESSING CDI TO R UPPER BACK
--- NOTE | 2018-04-07 13:16 | Diagnostic Imaging Report ---
Procedure: Ultrasound-guided right diagnostic and therapeutic thoracentesis rotary drill rig operator: Tenzin Stapleton MD Pre-operative diagnosis: Moderate right pleural effusion. Post-operative diagnosis: Near resolution of right pleural effusion status post thoracentesis. Sedation: 10 cc subcutaneous 1% Lidocaine Estimated blood loss: Minimal Implants: None TECHNIQUE/FINDINGS: Informed consent was obtained from the patient and documented in the medical record. The patient was placed in the upright position. The right posterior chest was prepped and draped in standard sterile fashion. Initial ultrasound demonstrated moderate right pleural effusion. Subsequently, 1% lidocaine was infiltrated into the skin and subcutaneous tissues for local anesthesia. Then under continuous sonographic guidance, a 5 Fr catheter was advanced into the right pleural space. The catheter was advanced off the needle and connected to vacuum bottle with subsequent evacuation of 650 cc of serous fluid. The catheter was removed and a sterile, occlusive dressing was applied. Sample was sent to the lab. The patient tolerated the procedure well. IMPRESSION: Moderate right effusion. Ultrasound-guided right diagnostic and therapeutic thoracentesis with removal of 650 cc of serous fluid. Signed by: Dr. Tenzin Stapleton MD on 04/07/2018 1:13 PM
[2018-04-07 13:25] LABS: RBC,BODY FLUID 817 cells/uL; WBC,BODY FLUID 1757 cells/uL
--- NOTE | 2018-04-07 13:26 | Diagnostic Imaging Report ---
Limited partial CT of the chest for lung biopsy planning purposes; Terminated procedure: lung biopsy INDICATION: Right lower lobe nodule on CT from 04/03/2018. COMPARISON: CT PE protocol 04/03/2018. TECHNIQUE: Limited non-contrast CT of the lower chest performed post thoracentesis for evaluation of right lower lobe pulmonary nodule. COMPLICATIONS: None RADIATION DOSE: Total DLP: 376 mGy*cm CTDIvol has been reviewed. It is below the limits set by the Radiation Protocol Committee (RPC). Dose modulation, iterative reconstruction, and/or weight based adjustment of the mA/kV was utilized to reduce the radiation dose to as low as reasonably achievable. FINDINGS: Status post thoracentesis, there has been interval resolution of right-sided pleural effusion. There is a trace right basilar hydropneumothorax on series 2, image 68. The right lower lobe dominant nodular opacity is abutting the major fissure and right hemidiaphragm and is also in the upper limits of depth for introducer needle placement. The procedure was felt to be unsafe, therefore was terminated. There are multiple other bilateral subcentimeter nodules, better characterized on contrast enhanced chest CT from 04/03/2018. CONCLUSION: Terminated procedure, CT guided right lower lobe pulmonary nodule biopsy given high risk location. Status post thoracentesis with resolution of right sided pleural effusion. Trace right basilar hydropneumothorax. Additional bilateral subcentimeter nodules are too small to biopsy, but may represent metastases given history of breast cancer. Follow-up chest CT is recommended per Oncology protocol. Signed by: Dr. Tenzin Stapleton MD on 04/07/2018 1:23 PM
[2018-04-07 13:28] LABS: LYMPHOCYTES,BODY FLUID 90 %; MONO/MACROPHG,BODY FLUID 5 %; OTHER CELLS,BODY FLUID 5 %
[2018-04-07 14:02] LABS: NEUTROPHILS,BODY FLUID 0 %
--- NOTE | 2018-04-07 14:57 | NUR ---
Nutrition Screen Note RD Recommendation for Physician: - Continue Regular diet as tolerated Plan of Care: RD following, monitoring for tolerance and adequacy Nutrition reason for involvement: LOS Primary Diagnose(s): PE, SOB PMH: Breast cancer, HTN, hypercholesterolemia Ht: 68 in Wt: 261 lb BMI: 39.7 kg/m2 IBW: [address] Assessment: (04/07) 57 YOF admitted for PE and SOB with PMH of breast cancer. Pt evaluated today for LOS. Pt out of room at time of attempted visits for lung biopsy and thoracentesis. Pt with recent thoracentesis with 1 liter fluid removal recently per chart. Pt with 50-100% meal intake per chart. No reported nutritional issues or GI distress per pt review during am rounds. Chart reviewed. Labs and meds reviewed. Current Diet: Regular Malnutrition Evaluation (04/07/18) The patient does not meet criteria for a specified degree of malnutrition at this time. Will re-evaluate at follow-up as appropriate. Pt out of room for procedures at time of attempted visits, will evaluate upon follow up. BMI 39.7 with no reported poor intake or wt loss upon admit. Diet Education Needs Assessment: Diet education not indicated, pt on regular diet. Nutrition Care Level: Low Signed: Mary Almanza RD, LD, [facility]
[2018-04-07] MEDS ORDERED: SODIUM CHLORIDE 0.9% 250ML 250 ML ONE (15:11)
--- NOTE | 2018-04-07 17:55 | NUR ---
SITTING IN BS CHAIR, MD MAURER INTO SEE PT, DISCUSSED POC
--- NOTE | 2018-04-07 19:20 | NUR ---
DURING SHIFT CHANGE PATIENT C/O SHORTNESS OF BREATH. UPON ASSESSMENT PATIENT'S LUNGS SOUNDED CLEAR EXCEPT THE LEFT POSTERIOR LOBE DIMINISHED. OXYGEN SATURATION READING AT 91% ON 2L/NC, OXYGEN INCREASED TO 3L/NC WITH SATURATION INCREASED TO 98%. PATIENT INSTRUCTED TO MAINTAIN BEDREST AND CALL FOR ASSISTANCE UPON GETTING OUT OF THE BED DUE TO LOW BLOOD PRESSURE. CALL LIGHT WITHIN EASY REACH, FAMILY MEMBERS AT THE BEDSIDE.
--- NOTE | 2018-04-07 20:52 | NUR ---
PATIENT C/O MILD PAIN TO THE BACK WITH PAIN SCORE #4, CALL PLACED OUT TO ATTENDING REGARDING TYLENOL ORDER. PATIENT HAS MORPHINE FOR PAIN BUT HER BLOOD PRESSURE IS 100/70. AWAITING CALL BACK FROM THE DOCTOR.
[2018-04-07] MEDS: ATORVASTATIN 20 MG TAB PO SCH (22:01)
[2018-04-07] MEDS: ONDANSETRON HCL INJ 2 MG/ML VIAL IV PRN (23:18)
--- NOTE | 2018-04-07 23:19 | NUR ---
PATIENT C/O PAIN TO THE BACK WITH PAIN SCORE #5, MEDICATED WITH MORPHINE AND ZOFRAN ORDERED. CALL LIGHT WITHIN EASY REACH, INSTRUCTED TO CALL FOR ASSISTANCE UPON GETTING OUT OF THE BED.
[2018-04-08] MEDS: VANCOMYCIN 750MG/NS 150ML IVPB 150 ML IV SCH (03:49)
--- NOTE | 2018-04-08 03:49 | NUR ---
PATIENT'S ASLEEP, SHE'S EASY TO AROUSE. NO RESPIRATORY DISTRESS OBSERVED, SHE DENIES PAIN. OXYGEN NC REMOVED, WILL ASSESS OXYGEN SATURATION ON ROOM AIR AND FOR THE NEED OF HOME OXYGEN. CALL LIGHT WITHIN EASY REACH, PATIENT EDUCATED TO NOTIFY THE PRIMARY OF SHORTNESS OF BREATH.
[2018-04-08 04:00] VITALS: BP 127/85
--- NOTE | 2018-04-08 05:03 | NUR ---
OXYGEN SATURATION ASSESSED ON ROOM AIR WITH READING OF 94-95%. PATIENT DENIES PAIN AND SHORTNESS OF BREATH. CALL LIGHT IN EASY REACH, SHE'S INSTRUCTED TO CALL FOR ASSISTANCE NEEDED.
[2018-04-08] MEDS: AZITHROMYCIN 500MG/NS 250 ML 250 ML IV SCH (06:12)
--- NOTE | 2018-04-08 07:40 | NUR ---
handoff report rec'd during walking rounds with outgoing shift commander nurse. pt awake, sitting on the side of the bed with even and unlabored respirations on room air. call light in reach with instructions to call for assistance.
[2018-04-08 08:21] VITALS: BP 122/90
[2018-04-08 09:50] VITALS: BP 122/90
[2018-04-08] MEDS: FUROSEMIDE INJ 10 MG/ML 2 ML VIAL IV SCH (10:00)
[2018-04-08] MEDS ORDERED: ALPRAZOLAM 0.25 MG TAB PO ONE (10:00)
[2018-04-08] MEDS: SPIRONOLACTONE 25 MG TAB PO SCH (10:00)
[2018-04-08] MEDS: ANASTROZOLE 1 MG TAB PO SCH (10:00)
[2018-04-08] MEDS: ASPIRIN 81 MG CHEW TAB PO SCH (10:00)
[2018-04-08] MEDS: PANTOPRAZOLE SOD 40 MG TABEC PO SCH (10:00)
--- NOTE | 2018-04-08 10:48 | NUR ---
Dr. Anderson called at this time for discharge orders. Orders rec'd.
[2018-04-08] MEDS ORDERED: LASIX40 MG PO (11:05)
[2018-04-08] MEDS ORDERED: ALDACTONE25 MG PO (11:06)
[2018-04-08] MEDS ORDERED: XANAX0.25 MG PO (11:06)
--- NOTE | 2018-04-08 11:34 | NUR ---
DISCHARGE INSTRUCTIONS GIVEN TO THE PATIENT WELL THE SPOUSE. RX'S GIVEN AND EXPLAINED PURPOSE AND SIDE EFFECTS. PATIENT AND SPOUSE VERBALIZED UNDERSTANDING. PICC LINE REMOVED WITH TIP INTACT; PRESSURE HELD FOR 5 MINUTES TO OBTAIN HEMOSTASIS. PRESSURE DRESSING APPLIED; PT TOLERATED WELL. ALL PERSONAL BELONGINGS GATHERED AND PACKED;
--- NOTE | 2018-04-08 11:35 | NUR ---
patient escorted to personal vehicle via wheelchair with all personal belongings and in stable condition with even and unlabored respirations on room air.
--- NOTE | 2018-04-08 12:03 | Discharge Summary ---
Nguyen Del Castillo is a 57-year-old female admitted with pleural effusion. For detailed history and physical, please review my dictation dated April 01, 2018. On admission, hemoglobin was 13.4, hematocrit of 41.2, white count of 3400, platelets of 283,000. She remained about the same. Prior to discharge, the hemoglobin was 12.2, white count of 3200, platelets of 294. Chemistry had shown a sodium of 137, potassium 3.5, chloride was 102, CO2 26. The patient needed some potassium supplement on April 06 when the patient's potassium was 3.2. However, prior to discharge, on April 07 it was 3.8. Total protein was 7.2, albumin low at 3.0, globulin was slightly high at 12.2, TSH high at 1.4. The patient had pleural fluid tapped. This was an exudate with total protein of 5.3, LDH of 131. There were cells, WBCs 1575, RBCs 817, mostly lymphocytes being 90%, 5 monocytes, 5 of fluid reported as other cells. Cytology so far has been reported negative. The body fluid culture had no organisms seen. Consultation with Dr. Gonzalez, a radiologist diagnostic, was obtained. A CT of the chest has shown a 1.8 cm nodule in the superior segment of the right lower lobe. There was no pulmonary embolus, bilateral pleural effusions mostly on the left. The patient subsequently had an attempt to have a biopsy of this lesion; however, it could not be done. The patient while in the hospital basically was treated for presumed bronchopneumonia and parapneumonic effusion with Zithromax and with vancomycin. THE PATIENT COULD NOT GET CEFTRIAXONE SHE WAS ALLERGIC TO PENICILLIN. The patient is doing better today. The patient also had a cardiology consultation as the CAT scan of the chest showed some congestion. Ejection fraction has dropped to 35% to 40%. Consultation with Dr. Kaz Garcia was obtained, a environmental test technician, who concurred with the treatment. At the present time, the patient is going to go home on (1) thiamine 100 mg p.o. daily, (2) Aldactone 25 mg p.o. b.i.d., (3) losartan 50 mg daily, (4) Lasix 40 mg p.o. b.i.d., (5) Coreg 12.5 mg p.o. daily, (6) Lipitor 20 mg a day, (7) aspirin 81 mg a day, (8) Xanax 0.25 mg p.o. daily, (9) Arimidex 1 mg p.o. daily. The patient will have a PET scan as outpatient. FINAL DIAGNOSES 1. Bilateral pleural effusions. 2. Exudative pleural effusion. 3. Congestive heart failure. 4. Breast cancer. 5. Hyperlipidemia. 6. Hypertension. The patient will be seen in the office in 1 week. Job#: [id number] EV
== END 2018-04-08 11:35 | disposition home or self-care (01) | DRG 186 ==
LOC: ER 11:08 → ERHOLD 15:01 → MED/SURG 18:06
PROVIDERS: ADMIT Internal Medicine Medical Oncology; ATTEND Internal Medicine Medical Oncology
PROC: 0W9B3ZX Drainage of Left Pleural Cavity, Percutaneous Approach, Diagnostic (ICD-10-PCS; principal; 2018-04-01)
PROC: 02HV33Z Insertion of Infusion Device into Superior Vena Cava, Percutaneous Approach (ICD-10-PCS; 2018-04-03)
PROC: 0W9B3ZX Drainage of Left Pleural Cavity, Percutaneous Approach, Diagnostic (ICD-10-PCS; 2018-04-07)
DX: J90 Pleural effusion, not elsewhere classified (principal); J18.0 Bronchopneumonia, unspecified organism; I50.23 Acute on chronic systolic (congestive) heart failure; I42.9 Cardiomyopathy, unspecified; I11.0 Hypertensive heart disease with heart failure; K21.9 Gastro-esophageal reflux disease without esophagitis; E78.00 Pure hypercholesterolemia, unspecified; Z88.0 Allergy status to penicillin; Z90.13 Acquired absence of bilateral breasts and nipples; Z85.3 Personal history of malignant neoplasm of breast; R91.1 Solitary pulmonary nodule
CPT/HCPCS: 32555; 36415; 36569; 71045; 71046; 71250; 71260; 74470; 76937; 80048; 80051; 80053; 80202; 82945; 83615; 83880; 84145; 84157; 84443; 85007; 85025; 85027; 85610; 85730; 87070; 87205; 88112; 88305; 88342; 89051; 93005; 93306; 96367; 96376; 99284; C1751; J0456; J1940; J2250; J2270; J2405; J3370; J3411; J3480; J7050; Q9967

== ENCOUNTER 2018-04-11 11:50 | Inpatient (IN) | payer BC ==
[~2018-04-11] VITALS: Ht 172.7 cm; Wt 118.4 kg
[2018-04-11] VITALS (8 sets, daily range): BP systolic 121–142; BP diastolic 79–99
[~2018-04-11 11:50] MED LIST: ALDACTONE25 MG PO; ANASTROZOLE1 MG; ASPIRIN81 MG; ATORVASTATIN CA20 MG PO; DYAZIDE 37.5-21 EACH; LASIX40 MG PO; PANTOPRAZOLE SO40 MG PO; XANAX0.25 MG PO
--- OUTSIDE RECORDS SUMMARY | 2018-04-11 11:52 | XMS REPORT | Clinical Summary ---
Author Author [facility] Address Unknown Phone Unavailable Care Team Providers Care Locksmith Helper Name Role Phone Aramis Ngo MD PCP [...] Trocar Nadia White 0.18in 15fr - Implants; [id number] Expanders; Implanted: 09/13/2016 (Quantity not Extenders; on file) Surgical Wires 2229 / / Drain Wound Hbls Round Radopaq Surgical N/A: N/A Trocar Nadia White 0.18in 15fr - Implants; [id number] Expanders; Implanted: 09/13/2016 (Quantity not Extenders; on file) Surgical Wires 2229 / / Drain Wound Hbls Round Radopaq Surgical N/A: N/A Trocar Nadia White 0.18in 15fr - Implants; [id number] Expanders; Implanted: 09/13/2016 (Quantity not Extenders; on file) Surgical Wires 2229 / / Drain Wound Hbls Round Radopaq Surgical N/A: N/A Trocar Nadia White 0.18in 15fr - Implants; [id number] Expanders; Implanted: 09/13/2016 (Quantity not Extenders; on file) Surgical Wires 2229 / / Drain Wound Hbls Round Radopaq Surgical N/A: N/A Trocar Nadia White 0.18in 15fr - Implants; [id number] Expanders; Implanted: 09/13/2016 (Quantity not Extenders; on file) Surgical Wires 2229 / / Drain Wound Hbls Round Radopaq Surgical N/A: N/A Trocar Nadia White 0.18in 15fr - Implants; [id number] Expanders; Implanted: 09/13/2016 (Quantity not Extenders; on file) Surgical Wires [id number] / / Design Manager Flow Vessel 3.5mm Assembly Surgical Right: N/A MICRO - [id number] Implants; COMPANIES Implanted: Qty: 1 on 09/13/2016 by Expanders; Nas Walter MD PhD Extenders; Surgical Wires [id number] / / Design Manager Anstc Artrl Flow 3mm Hear Surgical Left: N/A MICRO - [id number] Implants; COMPANIES Implanted: Qty: 1 on 09/13/2016 by Expanders; Nas Walter MD PhD Extenders; Surgical Wires 2229 / / Drain Wound Hbls Round Radopaq Surgical N/A: N/A Trocar Nadia White 0.18in 15fr - Implants; [id number] Expanders; Implanted: 12/25/2016 (Quantity not Extenders; on file) Surgical Wires 2229 / / Drain Wound Hbls Round Radopaq Surgical N/A: N/A Trocar Nadia White 0.18in 15fr - Implants; [id number] Expanders; Implanted: 12/25/2016 (Quantity not Extenders; on file) Surgical Wires Results Not on fileafter 04/10/2017 Insurance Payer Benefit Subscriber ID Type Phone Address Plan / Group BCBS BCBS xxxxxxxxxxxx PPO CHOICE PPO/JOE ROMERO PPO Surgery Advance Directives Patient has advance care planning documents on file. For more information, reyna riggins contact: Kavon Hercules [id number] [place] [address]
[2018-04-11 12:25] LABS: CLARITY,URINE CLEAR (CLEAR); COLOR,URINE YELLOW (YELLOW); LEUKOCYTE ESTERASE ,URINE TRACE (NEGATIVE); NITRITE,URINE NEGATIVE (NEGATIVE); PROTEIN,URINE DIPSTICK NEGATIVE (NEGATIVE)
[2018-04-11 12:26] LABS: BILIRUBIN,URINE NEGATIVE (NEGATIVE); KETONES,URINE NEGATIVE (NEGATIVE); URINE UROBILINOGEN 0.2 mg/dL (0.2 - 1)
[2018-04-11 12:46] LABS: BASOPHILS % 0.6 % (0.0-1.0); EOSINOPHILS % 0.8 % (0.0-6.0); HEMATOCRIT 43.9 % (34.2-44.1); HEMOGLOBIN 14.4 g/dL (12.0-16.0); LYMPHOCYTES # (AUTO) 0.7 (1.0-3.2); LYMPHOCYTES % 20.7 % (18.0-39.1); MEAN CORPUSCULAR HEMOGLOBIN 29.2 pg (28-32); MEAN CORPUSCULAR HGB CONC 32.8 g/dL (31-35); MONOCYTES # (AUTO) 0.4 (0.2-0.8); MONOCYTES % 10.9 % (4.4-11.3); NEUTROPHILS # (AUTO) 2.4 (2.1-6.9); NEUTROPHILS % 66.4 % (38.7-80.0); PLATELET COUNT 375 x10e3/uL (140-360); RED BLOOD COUNT 4.93 x10e6/uL (3.6-5.1); RED CELL DISTRIBUTION WIDTH 12.7 % (11.7-14.4)
[2018-04-11 12:57] LABS: BACTERIA,URINE RARE /HPF; EPITHELIAL CELLS,URINE RARE /LPF
[2018-04-11 13:01] LABS: INR 1.01; PARTIAL THROMBOPLASTIN TIME 27.3 seconds (23.8-35.5); PROTHROMBIN TIME 14.2 seconds (11.9-14.5)
[2018-04-11 13:10] LABS: ALANINE AMINOTRANSFERASE 32 IU/L (0-55); ALBUMIN 3.9 g/dL (3.5-5.0); ALBUMIN/GLOBULIN RATIO 0.7 (0.8-2.0); ALKALINE PHOSPHATASE 143 IU/L (40-150); ANION GAP 17.8 mmol/L (8-16); BLOOD UREA NITROGEN 15 mg/dL (7-26); BUN/CREATININE RATIO 12 (6-25); CALCIUM 11.2 mg/dL (8.4-10.2); CARBON DIOXIDE 29 mmol/L (22-29); CHLORIDE 90 mmol/L (98-107); CREATINE KINASE 65 IU/L (29-168); EST GLOMERULAR FILTRATION RATE 51 ML/MIN (60-); GLUCOSE 98 mg/dL (74-118); POTASSIUM 3.8 mmol/L (3.5-5.1); SODIUM 133 mmol/L (136-145)
--- NOTE | 2018-04-11 13:38 | Diagnostic Imaging Report ---
EXAMINATION: PA and lateral views of the chest. COMPARISON: CT chest without contrast 04/07/2018, chest radiograph 04/06/2018 CLINICAL HISTORY: Trouble breathing DISCUSSION: Interval removal of right upper extremity PICC. Unchanged moderate left and small right pleural effusion with lower lobe and lingular airspace disease, likely passive atelectasis. Lung apices remain comparatively well aerated. Perihilar prominence of the pulmonary interstitium unchanged, with stable cardiomediastinal contour. IMPRESSION: Bilateral pleural effusions, left larger than right, bibasilar passive atelectasis, and pulmonary venous congestion are similar to that noted on 04/06/2018. Signed by: Dr. Aramis Umanzor M.D. on 04/11/2018 1:35 PM
[2018-04-11] MEDS ORDERED: MORPHINE SULFATE 2 MG/ML SYR 1ML IV PRN (14:00)
[2018-04-11] MEDS ORDERED: SODIUM CHLORIDE FLUSH 10 ML SYR INJ PRN (14:00)
[2018-04-11] MEDS ORDERED: ONDANSETRON HCL INJ 2MG/ML 2ML 2 MG/ML VIAL IV PRN (14:00)
--- OUTSIDE RECORDS SUMMARY | 2018-04-11 14:09 | XMS REPORT | Clinical Summary ---
Author Author [facility] Address Unknown Phone Unavailable Care Team Providers Care Internal Control Analyst Name Role Phone Aramis Ngo MD PCP [...] Trocar Nadia White 0.18in 15fr - Implants; [id number] Expanders; Implanted: 09/13/2016 (Quantity not Extenders; on file) Surgical Wires 2229 / / Drain Wound Hbls Round Radopaq Surgical N/A: N/A Trocar Nadia White 0.18in 15fr - Implants; [id number] Expanders; Implanted: 09/13/2016 (Quantity not Extenders; on file) Surgical Wires 2229 / / Drain Wound Hbls Round Radopaq Surgical N/A: N/A Trocar Nadia White 0.18in 15fr - Implants; [id number] Expanders; Implanted: 09/13/2016 (Quantity not Extenders; on file) Surgical Wires 2229 / / Drain Wound Hbls Round Radopaq Surgical N/A: N/A Trocar Nadia White 0.18in 15fr - Implants; [id number] Expanders; Implanted: 09/13/2016 (Quantity not Extenders; on file) Surgical Wires 2229 / / Drain Wound Hbls Round Radopaq Surgical N/A: N/A Trocar Nadia White 0.18in 15fr - Implants; [id number] Expanders; Implanted: 09/13/2016 (Quantity not Extenders; on file) Surgical Wires 2229 / / Drain Wound Hbls Round Radopaq Surgical N/A: N/A Trocar Nadia White 0.18in 15fr - Implants; [id number] Expanders; Implanted: 09/13/2016 (Quantity not Extenders; on file) Surgical Wires [id number] / / Diesel Retrofit Installer Flow Vessel 3.5mm Assembly Surgical Right: N/A MICRO - [id number] Implants; COMPANIES Implanted: Qty: 1 on 09/13/2016 by Expanders; Nas Walter MD PhD Extenders; Surgical Wires [id number] / / Diesel Retrofit Installer Anstc Artrl Flow 3mm Hear Surgical Left: N/A MICRO - [id number] Implants; COMPANIES Implanted: Qty: 1 on 09/13/2016 by Expanders; Nas Walter MD PhD Extenders; Surgical Wires 2229 / / Drain Wound Hbls Round Radopaq Surgical N/A: N/A Trocar Nadia White 0.18in 15fr - Implants; [id number] Expanders; Implanted: 12/25/2016 (Quantity not Extenders; on file) Surgical Wires 2229 / / Drain Wound Hbls Round Radopaq Surgical N/A: N/A Trocar Nadia White 0.18in 15fr - Implants; [id number] Expanders; Implanted: 12/25/2016 (Quantity not Extenders; on file) Surgical Wires Results Not on fileafter 04/10/2017 Insurance Payer Benefit Subscriber ID Type Phone Address Plan / Group BCBS BCBS xxxxxxxxxxxx PPO CHOICE PPO/JOE ROMERO PPO Surgery Advance Directives Patient has advance care planning documents on file. For more information, reyna riggins contact: Kavon Hercules [address] [place] [address]
--- NOTE | 2018-04-11 15:23 | NUR ---
Patient arrived to the floor from the ER via wheelchair. She is awake alert and oriented x3, she is on 02 at @L via NC. She has a family member present with her. Dr. Gonzalez is also here to see the patient. Chest tube placement has been ordered and the patient notified of procedure, she is agreeable. Oriented her on how to use the call light , she verbalized understanding. Call light in reach, will continue with admission. Also explained to patient to remain NPO due to chest tube placement. She verbalized understanding.
[2018-04-11] MEDS ORDERED: MIDAZOLAM HCL 2 MG/2 ML VIAL ONE (16:08)
[2018-04-11] MEDS ORDERED: FENTANYL CITRATE/PF 100MCG/2 ML INJ ONE (16:09)
--- NOTE | 2018-04-11 16:16 | Consultation ---
DATE OF CONSULTATION: April 11, 2018 PULMONARY CONSULTATION ATTENDING PHYSICIAN: Dr. Bridgett Anderson. HISTORY OF PRESENT ILLNESS: Ms. Del Castillo is a 57-year-old woman with a history of stage IV breast cancer diagnosed in 2016. She has had mastectomy, chemotherapy and radiation. This was followed in 2017 with reconstructive surgery. She has been taking Arimidex. She was recently hospitalized here beginning on about April 01 or so as a result of increased shortness of breath and pleural effusions. During that hospitalization, she had thoracentesis showing exudative pleural effusion. She was also found to have a right lung nodule that was attempted to biopsy but was unable to be reached. In addition to that, she was found to have a decreased ejection fraction of 35% and was seen by cardiology. She returned to the hospital today with increasing shortness of breath, cough, but denies any swelling, chest pain, sputum production. She was found in the ER to have bilateral pleural effusions, left significantly greater than the right. The left was also significantly more than the last one done here. Echo done at last admission showed resting tachycardia with 35% to 40% ejection fraction and diastolic dysfunction as well. She had a moderately dilated left atrium. PAST MEDICAL HISTORY: Hypertension, hypercholesterolemia, and breast cancer as mentioned before and the new recent diagnosis of mixed systolic and diastolic heart failure. SURGICAL HISTORY: As described above. SOCIAL HISTORY: Negative for tobacco, alcohol, or drug use. FAMILY HISTORY: Noncontributory. DRUG ALLERGIES: NONE. CURRENT MEDICATIONS 1. Xanax. 2. Anastrozole. 3. Aspirin. 4. Lipitor. 5. Lasix. 6. Protonix. 7. Spironolactone. PHYSICAL EXAMINATION VITAL SIGNS: When she presented, her heart rate was 112. She was breathing 20 times a minute. Blood pressure was 109/78, saturation was 100%. GENERAL APPEARANCE: This is a very pleasant, obese, black woman, awake, alert, sitting in a wheelchair. HEENT: Head is normocephalic, atraumatic. Pupils are round and reactive. Mucous membranes are moist. HEART: Has a regular, though mildly tachycardic rhythm in the 110s. CHEST: Has decreased breath sounds up about half on the left side and she is a little bit dull at the right base with a few crackles just above the dullness. ABDOMEN: Soft, nontender. EXTREMITIES: Have no significant edema. NEUROLOGICALLY: She is awake, alert, appropriate. Cranial nerves are intact. She can move all 4 extremities. LABORATORY DATA: Chest x-ray shows heart size upper limit of normal with bilateral pleural effusions, left greater than the right. White count 3, hemoglobin and hematocrit are 14 and 43 with 375,000 platelets. Sodium 132, potassium 3.8, chloride 90, carbon dioxide 29, BUN and creatinine are 15 and 1.3. Calcium is 11.2. AST, ALT are within normal limits, as is the alk phos. Her albumin is normal at 3.9. Urinalysis has 6 to 10 white blood cells and trace leukocyte esterase. Coags are normal. ASSESSMENT: Bilateral pleural effusions. In the past they were exudative with lymphocytic predominance and her history could be very suggestive of malignancy, although we do not have tissue diagnosis currently as the thoracentesis done on the was negative for malignancy. Breast cancer. Shortness of breath, secondary to pleural effusions. May some element of CHF as well. Other medical issues include combined systolic and diastolic heart failure, breast cancer, history as mentioned before, obesity. RECOMMENDATIONS AND PLAN: Patient has been seen and examined in the emergency department. I recommend that she has a chest tube placed by special procedure/interventional radiology. We will collect the fluid and resubmit it for cytology. I recommend that she has evaluation by surgical services for thoracoscopy, pleural biopsies, and possible pleurodesis. It was discussed with the family other modalities to deal with the fluid symptomatically and PleurX is an option. Given the fact that she has malignancy and this is likely related, I would not drain this internally. We also discussed the fact that these are malignant pleural effusions, that pleurodesis or VATS, etc., will not treat or cure this, only decrease the reaccumulation into the pleural space, keeping her more comfortable from a respiratory [id number]. Everybody expressed understanding. Job#: [id number] REYNALDO HO
--- NOTE | 2018-04-11 16:21 | NUR ---
Per Dr. Gonzalez, left chest tube placement
--- NOTE | 2018-04-11 16:36 | NUR ---
Patient left the floor with transport nurse , she is having chest tube placed.
--- NOTE | 2018-04-11 17:32 | NUR ---
Received report from radiology nurse. Patient is s/p chest tube placement to water seal, coming back to room 201.
--- NOTE | 2018-04-11 17:45 | NUR ---
Patient arrived to the floor s/p chest tube placement. She is awake alert and oriented x3, chest tube is to left side of back, tubing is secured in place with tape. It is connected to water seal at this time and does not need to be connected to suction per radiology nurse and radiologist written order in the chart. Patient is on 2l ox oxygen via nasal cannula. Patient was assisted to bedside commode and back in bed. Explained that chest tube must remain below the level of the chest, she verbalized understanding. She denies needing anything else at this time, call light in reach
[2018-04-11] MEDS: MORPHINE SULFATE INJ 4 MG/ML INJ 1ML IV PRN ×2 (18:04→23:46)
--- NOTE | 2018-04-11 19:10 | NUR ---
Received patient awake on bed, chest tube to the left chest attached to water seal noted at 650 level ,taped and dressing intact. No complaints of pain at this time. Call light within easy reached, advised to call for assistance anytime, will continue to monitor closely
--- NOTE | 2018-04-11 21:34 | Diagnostic Imaging Report ---
EXAM: CHEST XRAY POST PROCEDURE, AP 1 view INDICATION: Chest tube placement COMPARISON: PA and lateral view the chest April 11, 2018 FINDINGS: LINES/TUBES: A percutaneous pigtail catheter is coiled in the left lung base. LUNGS: Bibasilar atelectasis and interstitial thickening. PLEURA: Small right pleural effusion. Near complete resolution of the left pleural effusion after placement of chest tube. HEART AND MEDIASTINUM: Stable appearance BONES AND SOFT TISSUES: No acute findings. IMPRESSION: Interval decrease in size of the left pleural effusion status post placement of percutaneous pigtail catheter. No pneumothorax. Interstitial edema, bibasilar atelectasis and small right pleural effusion. Signed by: Dr. Urvashi Mcgee M.D. on 04/11/2018 9:31 PM
[2018-04-11 22:23] LABS: CREATINE KINASE MB 1.6 ng/mL (0-5.0)
[2018-04-12] VITALS (8 sets, daily range): BP systolic 120–143; BP diastolic 75–99
[2018-04-12] MEDS: MORPHINE SULFATE INJ 4 MG/ML INJ 1ML IV PRN ×2 (03:36→09:45)
[2018-04-12 05:31] LABS: BASOPHILS % 0.5 % (0.0-1.0); EOSINOPHILS % 0.3 % (0.0-6.0); HEMATOCRIT 43.4 % (34.2-44.1); HEMOGLOBIN 14.1 g/dL (12.0-16.0); LYMPHOCYTES # (AUTO) 0.8 (1.0-3.2); MEAN CORPUSCULAR HEMOGLOBIN 29.2 pg (28-32); MEAN CORPUSCULAR HGB CONC 32.5 g/dL (31-35); MEAN CORPUSCULAR VOLUME 89.9 fL (81-99); MONOCYTES # (AUTO) 0.4 (0.2-0.8); MONOCYTES % 11.6 % (4.4-11.3); NEUTROPHILS # (AUTO) 2.5 (2.1-6.9); NEUTROPHILS % 65.3 % (38.7-80.0); PLATELET COUNT 325 x10e3/uL (140-360); RED BLOOD COUNT 4.83 x10e6/uL (3.6-5.1); RED CELL DISTRIBUTION WIDTH 12.6 % (11.7-14.4)
[2018-04-12 05:57] LABS: CREATINE KINASE MB 1.4 ng/mL (0-5.0)
[2018-04-12 05:58] LABS: ANION GAP 18.3 mmol/L (8-16); BLOOD UREA NITROGEN 17 mg/dL (7-26); BUN/CREATININE RATIO 16 (6-25); CALCIUM 10.3 mg/dL (8.4-10.2); CARBON DIOXIDE 26 mmol/L (22-29); CHLORIDE 92 mmol/L (98-107); CREATININE, SERUM 1.08 mg/dL (0.57-1.11); EST GLOMERULAR FILTRATION RATE > 60 ML/MIN (60-); GLUCOSE 79 mg/dL (74-118); POTASSIUM 4.3 mmol/L (3.5-5.1); SODIUM 132 mmol/L (136-145)
--- NOTE | 2018-04-12 06:13 | Diagnostic Imaging Report ---
EXAM: CHEST SINGLE (PORTABLE), AP 1 view INDICATION: Bilateral pleural effusions, chest tube COMPARISON: AP view of the chest April 11, 2018 FINDINGS: LINES/TUBES: Stable percutaneous pigtail catheter left lung base LUNGS: Bibasilar atelectasis and interstitial thickening. PLEURA: Small bilateral pleural effusions. Possible trace left apical pneumothorax. HEART AND MEDIASTINUM: Normal size and contour. BONES AND SOFT TISSUES: Left axillary surgical clips. IMPRESSION: Small bilateral pleural fusions. Possible trace left apical pneumothorax. Stable position of left pigtail catheter. Signed by: Dr. Urvashi Mcgee M.D. on 04/12/2018 6:10 AM
--- NOTE | 2018-04-12 06:33 | NUR ---
left chest tube current level 780
--- NOTE | 2018-04-12 06:45 | NUR ---
rounded with the assistant shift supervisor nurse, patient aware of change. Patient in no distress, call dong within reach and bed in lowest position.
[2018-04-12] MEDS ORDERED: ALPRAZOLAM 0.25 MG TAB PO SCH ×2 (09:00→17:00)
[2018-04-12] MEDS ORDERED: SPIRONOLACTONE 25 MG TAB PO SCH (09:00)
[2018-04-12] MEDS: ALPRAZOLAM 0.25 MG TAB PO SCH ×2 (09:45→18:22)
[2018-04-12] MEDS: FUROSEMIDE 40 MG TAB PO SCH ×2 (09:45→18:22)
[2018-04-12] MEDS: PANTOPRAZOLE SOD 40 MG TABEC PO SCH (09:45)
[2018-04-12] MEDS: ASPIRIN 81 MG CHEW TAB PO SCH (09:45)
[2018-04-12] MEDS: ANASTROZOLE 1 MG TAB PO SCH (09:45)
--- NOTE | 2018-04-12 13:28 | NUR ---
SOCIAL WORK INITIAL ASSESSMENT Ornamenter to bedside to discuss plan of care with patient/family. CM/SW role and care transitions discussed. Anticipated discharge plan discussed along with duration of care. CM/SW discussed patients right to make decisions in care. CM/SW work hours given. 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 Name and number was also written on the patients whiteboard. Patient verbalized understanding of discussion. CM will follow-up with ongoing discharge and transition of care needs.
--- NOTE | 2018-04-12 13:45 | NUR ---
beside blood sugar documented in the computer showing patient's blood sugar at 324. This reading was entered for the wrong patient.
[2018-04-12] MEDS ORDERED: ONDANSETRON HCL 4 MG ORAL DISINTEGRATING TAB PO PRN (17:30)
[2018-04-12] MEDS: CARVEDILOL 12.5 MG TAB PO SCH (18:21)
[2018-04-12] MEDS: DRONABINOL 2.5MG PO SCH (18:22)
[2018-04-12] MEDS: HYDROCODONE/APAP 5MG-325MG TAB PO PRN (18:22)
--- NOTE | 2018-04-12 18:34 | Consultation ---
DATE OF CONSULTATION: April 12, 2018 CARDIAC CONSULTATION REASON FOR CONSULTATION: Recurrent left pleural effusion. HISTORY: This is a 57-year-old lady who has a known past medical history of hypertension, hypercholesterolemia, breast cancer. She was at this institution last week with pleural effusion. She was diagnosed with stage IV recurrent breast cancer. Her initial diagnosis was in 2014 when she had chemotherapy and subsequent mastectomy. Following that, she had reconstruction surgery. Patient had in the past a diagnosis of invasive ductal carcinoma, and she had radiation therapy in addition to the chemotherapy. She is on chronic hormone suppression therapy. Patient came to this institution with severe shortness of breath. Of note at that time, her tap was exudative. Her echocardiogram showed decreased ejection fraction now at 35% to 40% or so. Patient dismissed home on appropriate medication. She came back with shortness of breath and large pleural effusion. Patient had left pigtail catheter placement by invasive radiology to drain her fluid. She is on oxygen. Her breathing is better. Of note at this admission, her BNP was less than 5 which would indicate her effusion was not secondary to heart failure. Patient seen by pulmonary and Dr. Anderson. Cardiac consultation is obtained. PAST MEDICAL HISTORY 1. Hypertension. 2. Hypercholesterolemia. 3. Breast cancer, as described above. 4. Tubal ligation. 5. History of Port-A-Cath in 2016. 6. History of bilateral mastectomy in 2016. 7. Reconstructive surgery in 2017. 8. Recent admission with exudative left pleural effusion and possible mass and diagnosis of stage IV recurrent breast cancer. REVIEW OF SYSTEMS GENERAL: Fatigue. Malaise. No fever. No chills. HEENT: No headache. No vision abnormality. PULMONARY: Progressively worsening shortness of breath, better after placing the pig tube in the left lung and thoracentesis. CARDIOVASCULAR: She is not having any angina. GI: Poor appetite but no hematemesis. No melena. HEMATOLOGY: No easy bruising or bleeding. : No hematuria. No dysuria. MUSCULOSKELETAL: Knee pain. NEUROLOGICAL: Good memory. Good speech. No focal weakness. HOME MEDICATIONS: Patient supposedly to be on the following medications; 1. Losartan 50 mg a day. 2. Coreg 12.5 mg twice a day. 3. Aspirin 81 mg a day. 4. Lipitor 20 mg a day. 5. Lasix 40 mg twice a day. 6. Spironolactone 25 mg a day. ALLERGIES: PENICILLIN. PHYSICAL EXAMINATION VITAL SIGNS: Height of 5"8', weight of 261 pounds, blood pressure 140/90, heart rate of 110, respiratory rate of 20. HEENT: Pupils are reactive. NECK: No elevation of jugular venous pulsation. CHEST: Pigtail chest drainage tube is noted, connected to Pneumovac, with crackles and decreased air entry in the left chest. HEART: PMI fifth left intercostal space. Normal first and second heart sounds. ABDOMEN: Soft with good bowel sounds. EXTREMITIES: No cyanosis. No clubbing. No edema. NEUROLOGIC: Nonfocal. LAB DATA: BNP of less than 5. White blood cell count of 3.8, hemoglobin 14.1, hematocrit 43%, BUN of 17, creatinine of 1, sodium of 132, potassium 4.3. IMAGING: Chest x-ray showing pleural effusion. Second x-ray showing presence of tube in the left lung. IMPRESSION 1. Stage IV breast cancer. 2. Recurrent left pleural effusion, most likely malignancy. 3. Left ventricular systolic dysfunction. 4. Hypertension. PLAN: Cardiac-wilks, our role will be supportive. Patient would resume her Coreg, would resume her losartan. We will continue her diuretics. We will observe volume status. We will decrease the diuretic dose. We will follow patient's progression with you and would like to thank you for your kind referral. Job#: [id number] RONALDO
[2018-04-12] MEDS: SALMETEROL/FLUTICASONE 250/50 INH SCH (19:05)
--- NOTE | 2018-04-12 19:15 | NUR ---
rounded with motel front desk attendant nurse, patient aware of change. Patient alert and oriented and in no distress. Call dong within reach
[2018-04-12] MEDS: ATORVASTATIN 20 MG TAB PO SCH (20:36)
[2018-04-12] MEDS: TRAMADOL HCL 50 MG TAB PO PRN (20:39)
[2018-04-13] VITALS (9 sets, daily range): BP systolic 83–143; BP diastolic 57–86
[2018-04-13] MEDS: HYDROCODONE/APAP 5MG-325MG TAB PO PRN ×4 (00:10→20:32)
[2018-04-13] MEDS: LEVOTHYROXINE SODIUM 100 MCG TAB PO SCH (06:09)
--- NOTE | 2018-04-13 06:45 | NUR ---
rounded with retail shift supervisor nurse, patient aware of change. Patient in no distress and call dong within reach.
[2018-04-13] MEDS: PANTOPRAZOLE SOD 40 MG TABEC PO SCH (07:40)
[2018-04-13] MEDS: ALPRAZOLAM 0.25 MG TAB PO SCH ×2 (09:08→16:45)
[2018-04-13] MEDS: DRONABINOL 2.5MG PO SCH (09:08)
[2018-04-13] MEDS: FUROSEMIDE 40 MG TAB PO SCH ×2 (09:08→16:45)
[2018-04-13] MEDS: CARVEDILOL 12.5 MG TAB PO SCH ×2 (09:08→16:50)
[2018-04-13] MEDS: ASPIRIN 81 MG CHEW TAB PO SCH (09:08)
[2018-04-13] MEDS: LOSARTAN POTASSIUM 25 MG TAB PO SCH (09:08)
[2018-04-13] MEDS: SPIRONOLACTONE 25 MG TAB PO SCH (09:08)
[2018-04-13] MEDS: ANASTROZOLE 1 MG TAB PO SCH (09:08)
[2018-04-13] MEDS: SALMETEROL/FLUTICASONE 250/50 INH SCH ×2 (09:45→19:30)
[2018-04-13] MEDS: TRAMADOL HCL 50 MG TAB PO PRN (11:47)
--- NOTE | 2018-04-13 19:05 | NUR ---
rounded with shift production associate nurse, patient aware of change. Patient in no distress. Call dong within reach and bed in lowest position/
[2018-04-13] MEDS: ATORVASTATIN 20 MG TAB PO SCH (20:32)
--- NOTE | 2018-04-13 21:05 | Progress Note ---
DATE: Progress note on behalf of Dr. Gonzalez. SUBJECTIVE: She is a 57-year-old female who had mastectomy for advanced cancer of the breast with radiation, chemo, and then reconstruction. Patient developed massive pleural effusion and a chest tube was placed in the left hemithorax. Currently, she seems to be depressed. OBJECTIVE: VITAL SIGNS: Blood pressure 109/64, pulse 106, respiratory rate 18, oxygen saturation 96%, afebrile. HEENT: Atraumatic. NECK: No tenderness. CHEST: There is a chest tube in the left hemithorax. HEART: No murmurs. ABDOMEN: Soft. EXTREMITIES: No pedal edema. IMPRESSION: 1. Mastectomy for breast cancer. 2. Chest tube in place for pleural effusion. 3. She has hypercholesterolemia, hypertension, hypothyroidism. PLAN: Currently, she is on hydrocodone/acetaminophen 5/325 q. 4 hours p.r.n. She is on dronabinol 2.5 mg daily, losartan 50 mg daily, spirolactone 25 daily, Xanax 0.25 b.i.d., Lasix 40 b.i.d., aspirin 81 daily, Arimidex 1 mg daily, Protonix 40 daily, levothyroxine 100 mcg daily, atorvastatin 20 daily, Coreg 25 b.i.d., Zofran 8 mg q.6 p.r.n., tramadol 50 q.4 p.r.n., morphine 2 mg q.4 p.r.n. We are planning to continue O2, so she has to continue with the same medication, to still keep the chest tube for fluid drainage and in coming days to repeat CBC and chemistry again. Job#: [id number] GILMAR
--- NOTE | 2018-04-13 23:23 | Progress Note ---
DATE: This is on behalf of Dr. Gonzalez. SUBJECTIVE: Patient is 57-year-old female with history of stage 4 breast cancer, diagnosed in 2016, mastectomy, chemotherapy and radiation was performed. Recent admission in March due to shortness of breath and pleural effusion, and patient had thoracentesis with some improvement. She was re-admitted on April 11 yesterday also for increasing left pleural effusion. She was complaining of shortness of breath, cough, but no chest pain. The pleural effusion was present on right side, but more significant on the left side. Patient had chest tube placement with significant removal of fluid at least more than 1000. Patient had echocardiogram disclosing ejection fraction of 35% to 40% with diastolic dysfunction. She also has history of hypertension, hypercholesterolemia besides the stage 4 breast cancer. OBJECTIVE: GENERAL: She is alert and cooperative. VITAL SIGNS: Afebrile. Blood pressure 126/98, heart rate 118, respiratory rate 20, oxygen saturation 99%. HEENT: Normocephalic, atraumatic. NECK: No tenderness. HEART: No murmurs. CHEST: Decreased breath sounds on both sides. There is a chest tube present in the left hemithorax. ABDOMEN: Soft. EXTREMITIES: Some edema. NEUROLOGIC: She is awake, interactive. The chest x-ray done today disclosed small bilateral pleural effusions, possible trace left apical pneumothorax, there is a stable position of the left pigtail catheter. The CBC was unremarkable. The chemistry, the sodium 132, rest of the chemistry was unremarkable. IMPRESSION: 1. Bilateral pleural effusions. 2. Patient had mastectomy for breast cancer. 3. Diastolic heart failure. 4. Obesity. In terms of medication, she is on Xanax 0.25 b.i.d., Protonix 40 every day, Lasix 40 b.i.d., all of them p.o.; aspirin 81 every day, Arimidex 1 mg every day p.o., morphine 2 mg q.4. p.r.n., Zofran 4 mg IV p.r.n., losartan 50 mg every day, Coreg 12.5 b.i.d., levothyroxine 100 mcg every day, tramadol 50 q.4. p.r.n., atorvastatin 20 every day, spironolactone 25 b.i.d., fentanyl 100 mcg p.r.n., Versed p.r.n. RECOMMENDATION: Patient is to have evaluation of the fluid cytology. Continue the placement of the chest tube for fluid removal. She needs to have surgical evaluation for possible pleurodesis, and I will follow her up with you. Job#: [id number]
[2018-04-14] VITALS (8 sets, daily range): BP systolic 90–111; BP diastolic 54–68
[2018-04-14] MEDS: HYDROCODONE/APAP 5MG-325MG TAB PO PRN (02:35)
[2018-04-14] MEDS: LEVOTHYROXINE SODIUM 100 MCG TAB PO SCH (05:46)
[2018-04-14] MEDS: SALMETEROL/FLUTICASONE 250/50 INH SCH ×2 (07:00→20:30)
--- NOTE | 2018-04-14 07:30 | Diagnostic Imaging Report ---
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 Umanzor Pre-operative diagnosis: Moderate left pleural effusion Post-operative diagnosis: Moderate left pleural effusion Conscious Sedation: Versed 0.5 mg and Fentanyl 25 mcg. The patient's heart rate and pulse oximetry were continuously monitored by the interventional radiology nurse. Blood pressure was monitored at 5 minute intervals. Total intraservice time for sedation: 55 minutes Additional Medications: Lidocaine 1% for local anesthesia Fluoroscopy time: 0 Contrast used: 0 Estimated blood loss: Minimal Blood products administered: None Specimens: None Implants: 10 Hungarian locking loop drainage catheter in the left pleural space Condition at completion: Stable Disposition: Returned to floor DISCUSSION: Informed consent was obtained and documented in the medical record after discussion of risks and benefits. Patient was placed in the sitting position and preliminary sonographic evaluation of the left posterolateral chest confirmed a suitable percutaneous approach to the moderate left pleural effusion. The left lateral and posterior chest wall was then prepped and draped in the standard sterile fashion. 1% lidocaine was infiltrated into the skin and subcutaneous tissues for local anesthesia. Then under continuous sonographic guidance, a 5 Hungarian Yueh needle catheter was advanced into the left pleural effusion. A permanent sonographic image was stored in the medical record. The catheter was advanced off the needle which was then removed. A 0.0 3 5-in. Amplatz wire was then advanced through the catheter and coiled within the pleural space. Radiologic Technology Program Director sonographic image was stored. The sheath was then removed over the wire and the tract was dilated. Then a 10 Hungarian locking loop all purpose drainage catheter was advanced over the wire and positioned in the left pleural space. The wire was removed and the catheter was connected to pleural evacuation device. The catheter was secured to the skin with monofilament nylon suture and a sterile, occlusive dressing was applied. Approximately 800 cc fluid was obtained in the immediate post procedure interval. The pleural evacuation device was then placed at wall suction as the patient began complaining of dull chest pain. FINDINGS: Moderate left pleural effusion IMPRESSION: Successful ultrasound-guided placement of a left chest tube (10 Hungarian locking loop drainage catheter) with immediate evacuation of 800 cc straw-colored fluid. Catheter position will be confirmed by post procedure chest radiograph, and the catheter will remain on waterseal overnight 04/11/2018. Signed by: Dr. Aramis Umanzor M.D. on 04/14/2018 7:27 AM
[2018-04-14] MEDS: CARVEDILOL 12.5 MG TAB PO SCH ×2 (08:00→17:00)
[2018-04-14] MEDS: PANTOPRAZOLE SOD 40 MG TABEC PO SCH (08:55)
[2018-04-14] MEDS: ANASTROZOLE 1 MG TAB PO SCH (08:55)
[2018-04-14] MEDS: ASPIRIN 81 MG CHEW TAB PO SCH (08:55)
[2018-04-14] MEDS: SPIRONOLACTONE 25 MG TAB PO SCH (09:00)
[2018-04-14] MEDS: DRONABINOL 2.5MG PO SCH (09:00)
[2018-04-14] MEDS: LOSARTAN POTASSIUM 25 MG TAB PO SCH (09:00)
[2018-04-14] MEDS: FUROSEMIDE 40 MG TAB PO SCH (09:00)
[2018-04-14] MEDS: ALPRAZOLAM 0.25 MG TAB PO SCH ×2 (09:00→17:47)
[2018-04-14] MEDS ORDERED: SOD PHOSPHATE/SOD BIPHOSPHATE ENEMA 132 ML BTL PR PRN (13:30)
[2018-04-14] MEDS ORDERED: CITRATE OF MAGNESIA 300ML BOTTLE PO ONE (13:30)
[2018-04-14] MEDS ORDERED: DOCUSATE SODIUM 100 MG CAP PO ONE (14:00)
--- NOTE | 2018-04-14 14:34 | NUR ---
Nutrition Screen Note RD Recommendation for Physician: -Continue cardiac diet as ordered Plan of Care: RD following, monitoring for tolerance and adequacy Nutrition reason for involvement: Nutrition Risk Trigger MST Primary Diagnose(s): 1. Bilateral pleural effusions. 2. Patient had mastectomy for breast cancer. 3. Diastolic heart failure. 4. Obesity. PMH: HTN, hypercholesterolemia, breast cancer, diastolic heart failure, obesity Ht: 68in Wt: 261lb BMI: 39.7kg/m2 IBW: 140lb RD Assessment: (04/14/2018) Chart reviewed. Labs and meds reviewed. 57yo F, who is admitted for SOB. Visited pt in the room. Pt reports good appetite with 100% recorded meal intake since admission. No GI complains noted. LBM 04/11, notified TARSHA eWber for pts request of stool softener. Pt denies any chewing or swallowing difficulty. 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 Will continue to monitor and follow. Current Diet: Cardiac diet Malnutrition Evaluation (04/14/2018) The patient does not meet criteria for a specified degree of malnutrition at this time. Will re-evaluate at follow-up as appropriate. Diet Education Needs Assessment: Diet education not indicated. Nutrition Care Level: low Signed: Esha Rooney, MS, RD, LD
[2018-04-14] MEDS: ATORVASTATIN 20 MG TAB PO SCH (20:41)
[2018-04-15] VITALS (10 sets, daily range): BP systolic 82–136; BP diastolic 41–76
[2018-04-15] MEDS: HYDROCODONE/APAP 5MG-325MG TAB PO PRN (00:33)
[2018-04-15] MEDS: LEVOTHYROXINE SODIUM 100 MCG TAB PO SCH (05:12)
[2018-04-15] MEDS: PANTOPRAZOLE SOD 40 MG TABEC PO SCH (07:30)
[2018-04-15] MEDS: ANASTROZOLE 1 MG TAB PO SCH (09:00)
[2018-04-15] MEDS ORDERED: DOCUSATE SODIUM 100 MG CAP PO SCH (09:00)
[2018-04-15] MEDS ORDERED: POLYETHYLENE GLYCOL 3350 17 GM PACK PO SCH (09:00)
[2018-04-15] MEDS: SPIRONOLACTONE 25 MG TAB PO SCH (09:00)
[2018-04-15] MEDS: ALPRAZOLAM 0.25 MG TAB PO SCH ×3 (09:00→22:51)
[2018-04-15] MEDS: CARVEDILOL 12.5 MG TAB PO SCH ×2 (09:00→17:00)
[2018-04-15] MEDS: LOSARTAN POTASSIUM 25 MG TAB PO SCH (09:00)
[2018-04-15] MEDS: FUROSEMIDE 40 MG TAB PO SCH (09:00)
[2018-04-15] MEDS: DRONABINOL 2.5MG PO SCH (09:00)
[2018-04-15] MEDS ORDERED: HEPARIN SOD/SOD CHLORIDE 1,000 ML ONE (13:11)
[2018-04-15] MEDS: SALMETEROL/FLUTICASONE 250/50 INH SCH ×2 (14:00→19:00)
[2018-04-15] MEDS ORDERED: LEVOFLOXACIN 500MG/D5W 100ML 100 ML IV ONE (14:16)
[2018-04-15] MEDS ORDERED: SUGAMMADEX SODIUM 200 MG/2 ML VIAL IV ONE (16:08)
[2018-04-15] MEDS ORDERED: ACETAMINOPHEN 1000 MG/100 ML IV PRN (17:15)
[2018-04-15] MEDS ORDERED: ONDANSETRON HCL INJ 2MG/ML 2ML 2 MG/ML VIAL IV PRN (17:15)
[2018-04-15] MEDS ORDERED: HYDROMORPHONE 1MG/1ML INJ IV PRN (17:15)
[2018-04-15] MEDS ORDERED: ALBUTEROL SULF 0.083% NEB SOLN 3 ML NEB ONE (17:26)
[2018-04-15] MEDS ORDERED: ONDANSETRON HCL INJ 2MG/ML 2ML 2 MG/ML VIAL ONE (17:29)
[2018-04-15] MEDS ORDERED: EPHEDRINE SULFATE INJ 50 MG/10 ML SYR ONE (17:29)
[2018-04-15] MEDS ORDERED: PHENYLEPHRINE HCL 1% 10 MG/ML VIAL ONE (17:29)
[2018-04-15] MEDS ORDERED: ALBUTEROL SULFATE HFA 8GM INHALATION AEROSOL INH ONE (17:29)
[2018-04-15] MEDS ORDERED: ROCURONIUM BROMIDE 10 MG/ML 5ML VIAL ONE (17:29)
[2018-04-15] MEDS ORDERED: LIDOCAINE HCL 2% LOCAL INJ 5 ML SDV VIAL INJ ONE (17:29)
[2018-04-15] MEDS ORDERED: DEXAMETHASONE SOD PHOS INJ 4 MG/ML VIAL ONE (17:29)
[2018-04-15] MEDS ORDERED: SEVOFLURANE INHAL SOLN 250 ML PEN BTL ONE (17:29)
[2018-04-15] MEDS ORDERED: MORPHINE SULFATE INJ 4 MG/ML INJ 1ML ONE ×2 (17:54→18:31)
[2018-04-15] MEDS ORDERED: MIDAZOLAM HCL 2 MG/2 ML VIAL ONE (18:06)
[2018-04-15] MEDS ORDERED: FENTANYL CITRATE/PF 100MCG/2 ML INJ ONE (18:06)
--- NOTE | 2018-04-15 19:52 | Diagnostic Imaging Report ---
A single frontal view of the chest. HISTORY: line placement, bilateral pleural effusions COMPARISON: Chest radiograph April 12, 2018 DISCUSSION: Portable technique, limits sensitivity of the exam. Soft tissue attenuation partially limits sensitivity of the exam. Tubes/Lines: Interval placement of a left-sided chest tube. Interval placement of a left approach central venous catheter, the catheter crosses midline and courses slightly superior and the tip projects near the expected region of the confluence of the brachiocephalic veins. Lungs and pleura: Low lung volumes result in bibasilar vascular crowding, accentuation of the pulmonary interstitial markings, central pulmonary vasculature, and the cardiac silhouette. Allowing for these limitations, the findings are as follows: Bibasilar atelectasis. Diffusely increased pulmonary suture markings. Heart and mediastinum: The cardiac silhouette is obscured. Bones and soft tissues: Right axillary metallic surgical clips. IMPRESSION: 1. Status post placement of a left approach central line, the tip of the catheter projects in the region of the confluence of the brachiocephalic veins, but the exact location is difficult to determine based on this limited single view chest x-ray. 2. Left-sided chest tube. 3. Low lung volumes, bibasilar atelectasis and small effusions. 4. Probable pulmonary edema. Signed by: Bharathi Zepeda.O., M.M.M. on 04/15/2018 7:49 PM
[2018-04-15] MEDS: SODIUM CHLORIDE 0.9% 1000ML 1,000 ML IV SCH (20:11)
[2018-04-15] MEDS: PANTOPRAZOLE 40 MG 10ML VIAL IV SCH (20:48)
[2018-04-16] VITALS (20 sets, daily range): BP systolic 95–128; BP diastolic 53–98
--- NOTE | 2018-04-16 00:20 | Operative Report ---
DATE OF PROCEDURE: April 15, 2018 PREOPERATIVE DIAGNOSIS: Recurrent left pleural effusion, rule out malignancy. POSTOPERATIVE DIAGNOSIS: Recurrent left pleural effusion, likely from metastatic cancer to the pleura. OPERATIONS PERFORMED: 1. Left video-assisted thoracoscopic surgery. 2. Pneumolysis. 3. Left pleurectomy. ANESTHESIA: General. COMPLICATIONS: None. ESTIMATED BLOOD LOSS: 50 mL. DESCRIPTION OF PROCEDURE: With the patient lying in bed in the lateral position under good general endotracheal anesthesia with a double-lumen tube, the left chest was prepped with Betadine solution and draped in the usual manner. An incision was made at the left anterior axillary line about the 5th interspace, and the incision was deepened down bluntly and the chest was entered between the ribs. Upon doing that, a Thoracoport was placed and the videoscope was placed into the intrathoracic cavity, immediately we encountered a cavity that was stuck in the lower chest from pleural effusion. There was some small amount of fluid, a lot of it was loculated. We then under direct vision after the lung from the pleura made a second incision posteriorly so that we could have good access into the chest cavity. The lung was then from the pleura and all of the gelatinous fluid and bloody fluid was aspirated. After this was done, examination revealed there were multiple white pleural-based lesions consistent with metastatic cancer in the lower half of the chest cavity consistent with metastatic disease. The lung was then fully in all directions from the pleura. We decided to go ahead and get generous sample of the pleura. Most of the pleura were then removed bluntly without any difficulty and it was all sent for examination. The lung was then also from the diaphragm and all of the ____pleura in that area was resected as well. After this was done, the whole area was then thoroughly irrigated. Hemostasis was ascertained. All of the excess fluid was aspirated. A #28 chest tube was then placed through the anterior Thoracoport and placed in the chest cavity and sutured to the skin with Ethibond suture. The posterior wound was then closed with interrupted 2-0 Vicryl and subcuticular 5-0 Vicryl. Benzoin, Steri-Strips, and dressings were applied. The sponge, lap, and needle count was correct. The patient tolerated the procedure well and returned to the recovery room in stable condition. Job#: [id number] DR HO
[2018-04-16] MEDS: HYDROMORPHONE 2MG/ML 2 MG/ML ML IV PRN ×2 (03:52→17:25)
[2018-04-16 04:56] LABS: HEMATOCRIT 35.6 % (34.2-44.1); HEMOGLOBIN 11.4 g/dL (12.0-16.0); LYMPHOCYTES # (AUTO) 0.4 (1.0-3.2); LYMPHOCYTES % 4.7 % (18.0-39.1); MEAN CORPUSCULAR HEMOGLOBIN 28.7 pg (28-32); MEAN CORPUSCULAR VOLUME 89.7 fL (81-99); MONOCYTES # (AUTO) 0.4 (0.2-0.8); MONOCYTES % 4.4 % (4.4-11.3); NEUTROPHILS % 90.6 % (38.7-80.0); PLATELET COUNT 365 x10e3/uL (140-360); RED BLOOD COUNT 3.97 x10e6/uL (3.6-5.1); RED CELL DISTRIBUTION WIDTH 12.6 % (11.7-14.4)
[2018-04-16 05:18] LABS: ALANINE AMINOTRANSFERASE 29 IU/L (0-55); ALBUMIN 2.6 g/dL (3.5-5.0); ALBUMIN/GLOBULIN RATIO 0.6 (0.8-2.0); ALKALINE PHOSPHATASE 108 IU/L (40-150); BLOOD UREA NITROGEN 25 mg/dL (7-26); BUN/CREATININE RATIO 26 (6-25); CALCIUM 9.9 mg/dL (8.4-10.2); CARBON DIOXIDE 28 mmol/L (22-29); CHLORIDE 89 mmol/L (98-107); CREATININE, SERUM 0.97 mg/dL (0.57-1.11); EST GLOMERULAR FILTRATION RATE > 60 ML/MIN (60-); GLUCOSE 99 mg/dL (74-118); SODIUM 126 mmol/L (136-145)
--- NOTE | 2018-04-16 06:19 | Diagnostic Imaging Report ---
EXAMINATION: CHEST SINGLE (PORTABLE) INDICATION: POST-OP COMPARISON: 04/15/2018 FINDINGS: AP view TUBES and LINES: Left-sided chest tube directed towards the apex. Left approach central venous catheter, stable with tip projecting near the expected brachiocephalic confluence. LUNGS: Low lung volumes with vascular crowding and accentuated vasculature. Pulmonary edema, stable. PLEURA: Stable bilateral pleural effusions, right greater than left. HEART AND MEDIASTINUM: The cardiomediastinal silhouette is unremarkable, partially obscured. BONES AND SOFT TISSUES: No acute osseous lesion. Left axillary surgical clips. UPPER ABDOMEN: No free air under the diaphragm. IMPRESSION: No significant change from 04/15/2018. Stable pulmonary edema and bilateral pleural effusions. Signed by: DR. Boris Garcia MD on 04/16/2018 6:16 AM
[2018-04-16] MEDS: LEVOTHYROXINE SODIUM 100 MCG TAB PO SCH (06:36)
[2018-04-16] MEDS: SALMETEROL/FLUTICASONE 250/50 INH SCH ×2 (07:00→20:30)
[2018-04-16] MEDS: LOSARTAN POTASSIUM 25 MG TAB PO SCH (08:23)
[2018-04-16] MEDS: FUROSEMIDE 40 MG TAB PO SCH (08:24)
[2018-04-16] MEDS: ANASTROZOLE 1 MG TAB PO SCH (08:24)
[2018-04-16] MEDS: CARVEDILOL 12.5 MG TAB PO SCH ×2 (08:24→17:00)
[2018-04-16] MEDS: DRONABINOL 2.5MG PO SCH (08:24)
[2018-04-16] MEDS: SPIRONOLACTONE 25 MG TAB PO SCH (08:24)
[2018-04-16] MEDS: ALPRAZOLAM 0.25 MG TAB PO SCH ×2 (08:24→21:23)
[2018-04-16] MEDS: HYDROCODONE/APAP 7.5MG-325MG 1 EA TAB PO PRN (09:48)
--- NOTE | 2018-04-16 10:46 | NUR ---
spoke to mo in lab, and he states they are working up the tissue that was sent from OR yesterday. not noted in the chart otherwise, so just double checking.
[2018-04-16] MEDS: KETOROLAC TROMETHAMINE 30 MG/ML VIAL IV PRN (11:50)
[2018-04-16] MEDS: SODIUM CHLORIDE 0.9% 1000ML 1,000 ML IV SCH ×2 (11:53→22:30)
[2018-04-16] MEDS ORDERED: SODIUM CHLORIDE 0.9% 250ML 250 ML IV ONE (14:00)
[2018-04-16] MEDS ORDERED: LEVOFLOXACIN 500MG/D5W 100ML 100 ML IV ONE (14:00)
--- NOTE | 2018-04-16 14:37 | NUR ---
art line d/c'd. dr. nugent states keep left ij for now.
--- NOTE | 2018-04-16 14:53 | NUR ---
WC Screening - P.U.P. - Length of Stay >3 days, Documented BS =16. - Alternating Air mattress in place. - Thierno Score 18 - Denies rash, Denies any skin problems. - Patient able to turn self. - Min assist for toileting needs. Verbalizes assistance for guiding with lines/ wires. - Patient sitting on side of bed. dangling foot with steady core balance. - No further recommendations at this time. Addendum: 04/16/18 at 1500 by Sebastian Fisher RN Amended: Links added.
[2018-04-16] MEDS: PANTOPRAZOLE 40 MG 10ML VIAL IV SCH (17:25)
[2018-04-16] MEDS: FUROSEMIDE INJ 10 MG/ML 4 ML VIAL IV SCH (20:44)
[2018-04-17] VITALS (21 sets, daily range): BP systolic 87–143; BP diastolic 45–113
[2018-04-17 04:55] LABS: BASOPHILS % 0.1 % (0.0-1.0); EOSINOPHILS % 0.1 % (0.0-6.0); HEMATOCRIT 33.4 % (34.2-44.1); HEMOGLOBIN 10.7 g/dL (12.0-16.0); LYMPHOCYTES # (AUTO) 0.9 (1.0-3.2); LYMPHOCYTES % 13.6 % (18.0-39.1); MEAN CORPUSCULAR HEMOGLOBIN 29.1 pg (28-32); MEAN CORPUSCULAR VOLUME 90.8 fL (81-99); MONOCYTES # (AUTO) 0.8 (0.2-0.8); MONOCYTES % 11.6 % (4.4-11.3); NEUTROPHILS # (AUTO) 5.1 (2.1-6.9); PLATELET COUNT 381 x10e3/uL (140-360); RED BLOOD COUNT 3.68 x10e6/uL (3.6-5.1); RED CELL DISTRIBUTION WIDTH 12.5 % (11.7-14.4)
[2018-04-17 05:21] LABS: ALANINE AMINOTRANSFERASE 24 IU/L (0-55); ALBUMIN 2.4 g/dL (3.5-5.0); ALBUMIN/GLOBULIN RATIO 0.5 (0.8-2.0); ALKALINE PHOSPHATASE 94 IU/L (40-150); BLOOD UREA NITROGEN 20 mg/dL (7-26); BUN/CREATININE RATIO 22 (6-25); CALCIUM 9.7 mg/dL (8.4-10.2); CARBON DIOXIDE 30 mmol/L (22-29); CHLORIDE 96 mmol/L (98-107); CREATININE, SERUM 0.89 mg/dL (0.57-1.11); EST GLOMERULAR FILTRATION RATE > 60 ML/MIN (60-); GLUCOSE 82 mg/dL (74-118)
[2018-04-17 05:25] LABS: SODIUM 134 mmol/L (136-145)
--- NOTE | 2018-04-17 06:12 | Diagnostic Imaging Report ---
EXAMINATION: CHEST SINGLE (PORTABLE) INDICATION: POST-OP COMPARISON: 04/16/2018 FINDINGS: AP view TUBES and LINES: Left-sided chest tube directed towards the apex. Left approach central venous catheter, stable with tip projecting near the expected brachiocephalic confluence. LUNGS: Low lung volumes with vascular crowding and accentuated vasculature. Pulmonary edema, stable. PLEURA: Stable bilateral pleural effusions, right greater than left. Small left pneumothorax. HEART AND MEDIASTINUM: The cardiomediastinal silhouette is unremarkable, partially obscured. BONES AND SOFT TISSUES: No acute osseous lesion. Left axillary surgical clips. IMPRESSION: Small left pneumothorax. Left chest tube in place. Stable pulmonary edema and bilateral pleural effusions. Signed by: DR. Boris Garcia MD on 04/17/2018 6:09 AM
[2018-04-17] MEDS: SALMETEROL/FLUTICASONE 250/50 INH SCH ×2 (07:00→20:00)
[2018-04-17] MEDS: ANASTROZOLE 1 MG TAB PO SCH (08:29)
[2018-04-17] MEDS: LEVOTHYROXINE SODIUM 100 MCG TAB PO SCH (08:29)
[2018-04-17] MEDS: LOSARTAN POTASSIUM 25 MG TAB PO SCH (08:30)
[2018-04-17] MEDS: SPIRONOLACTONE 25 MG TAB PO SCH (08:33)
[2018-04-17] MEDS: DRONABINOL 2.5MG PO SCH (08:33)
[2018-04-17] MEDS: ALPRAZOLAM 0.25 MG TAB PO SCH ×2 (08:33→17:00)
[2018-04-17] MEDS: FUROSEMIDE INJ 10 MG/ML 4 ML VIAL IV SCH ×2 (09:00→21:08)
[2018-04-17] MEDS: CARVEDILOL 12.5 MG TAB PO SCH (09:00)
[2018-04-17] MEDS ORDERED: METOPROLOL TARTRATE INJ 1 MG/ML VIAL IV ONE (12:45)
[2018-04-17] MEDS: HYDROMORPHONE 2MG/ML 2 MG/ML ML IV PRN (12:53)
[2018-04-17] MEDS: KETOROLAC TROMETHAMINE 30 MG/ML VIAL IV PRN (17:33)
[2018-04-17] MEDS: PANTOPRAZOLE 40 MG 10ML VIAL IV SCH (18:20)
[2018-04-17] MEDS: METOPROLOL TARTRATE 50 MG TAB PO SCH (18:23)
[2018-04-18] VITALS (18 sets, daily range): BP systolic 84–134; BP diastolic 46–101
[2018-04-18] MEDS: KETOROLAC TROMETHAMINE 30 MG/ML VIAL IV PRN ×3 (00:25→15:00)
[2018-04-18 04:34] LABS: BASOPHILS % 0.2 % (0.0-1.0); EOSINOPHILS % 0.2 % (0.0-6.0); HEMOGLOBIN 10.6 g/dL (12.0-16.0); LYMPHOCYTES % 19.8 % (18.0-39.1); MEAN CORPUSCULAR HEMOGLOBIN 28.5 pg (28-32); MEAN CORPUSCULAR HGB CONC 31.2 g/dL (31-35); MEAN CORPUSCULAR VOLUME 91.4 fL (81-99); MONOCYTES # (AUTO) 0.6 (0.2-0.8); MONOCYTES % 12.2 % (4.4-11.3); NEUTROPHILS # (AUTO) 3.5 (2.1-6.9); NEUTROPHILS % 67.2 % (38.7-80.0); PLATELET COUNT 354 x10e3/uL (140-360); RED BLOOD COUNT 3.72 x10e6/uL (3.6-5.1); RED CELL DISTRIBUTION WIDTH 12.6 % (11.7-14.4)
[2018-04-18 04:53] LABS: ALBUMIN 2.6 g/dL (3.5-5.0); ALBUMIN/GLOBULIN RATIO 0.6 (0.8-2.0); ANION GAP 12.1 mmol/L (8-16); CALCIUM 10.3 mg/dL (8.4-10.2); CREATININE, SERUM 1.14 mg/dL (0.57-1.11); POTASSIUM 4.1 mmol/L (3.5-5.1)
[2018-04-18] MEDS: HYDROCODONE/APAP 7.5MG-325MG 1 EA TAB PO PRN ×3 (05:33→22:32)
[2018-04-18] MEDS: LEVOTHYROXINE SODIUM 100 MCG TAB PO SCH (05:34)
--- NOTE | 2018-04-18 06:37 | Diagnostic Imaging Report ---
EXAMINATION: CHEST SINGLE (PORTABLE) INDICATION: POST-OP COMPARISON: 04/16/2018 FINDINGS: AP view TUBES and LINES: Left-sided chest tube directed towards the apex. Left approach central venous catheter, stable with tip projecting near the expected brachiocephalic confluence. LUNGS: Low lung volumes with vascular crowding and accentuated vasculature. Pulmonary edema, stable. PLEURA: Stable bilateral pleural effusions, right greater than left. Decreased small left pneumothorax. HEART AND MEDIASTINUM: The cardiomediastinal silhouette is unremarkable, partially obscured. BONES AND SOFT TISSUES: No acute osseous lesion. Left axillary surgical clips. IMPRESSION: Decreased small left pneumothorax. Left chest tube in place. Stable pulmonary edema and bilateral pleural effusions. Signed by: DR. Boris Garcia MD on 04/18/2018 6:34 AM
[2018-04-18] MEDS: SALMETEROL/FLUTICASONE 250/50 INH SCH ×2 (07:20→20:00)
[2018-04-18] MEDS: LOSARTAN POTASSIUM 25 MG TAB PO SCH (08:06)
[2018-04-18] MEDS: ALPRAZOLAM 0.25 MG TAB PO SCH ×2 (08:06→16:21)
[2018-04-18] MEDS: SPIRONOLACTONE 25 MG TAB PO SCH (08:06)
[2018-04-18] MEDS: METOPROLOL TARTRATE 50 MG TAB PO SCH ×2 (08:06→17:00)
[2018-04-18] MEDS: ANASTROZOLE 1 MG TAB PO SCH (08:06)
[2018-04-18] MEDS: FUROSEMIDE INJ 10 MG/ML 4 ML VIAL IV SCH ×2 (09:00→21:00)
--- NOTE | 2018-04-18 14:35 | Diagnostic Imaging Report ---
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 Post-operative diagnosis: Decreased small right pleural effusion status post thoracentesis. Sedation: 10 cc subcutaneous 1% Lidocaine Estimated blood loss: None. Implants: None TECHNIQUE/FINDINGS: Informed consent was obtained from the patient and documented in the medical record. The patient was placed in the upright position. The right posterior chest was prepped and draped in standard sterile fashion. Initial ultrasound demonstrated small right pleural effusion. Subsequently, 1% lidocaine was infiltrated into the skin and subcutaneous tissues for local anesthesia. Then under continuous sonographic guidance, a 20 gauge needle was advanced into the right pleural space. A total of 70 cc of serous fluid was removed. The needle was removed and a sterile, occlusive dressing was applied. Sample was sent to the lab. The patient tolerated the procedure well. IMPRESSION: Small right effusion. Ultrasound-guided right diagnostic thoracentesis with removal of 70 cc of serous fluid. Signed by: Dr. Tenzin Stapleton MD on 04/18/2018 2:32 PM
[2018-04-18] MEDS: DRONABINOL 2.5MG PO SCH (14:42)
--- NOTE | 2018-04-18 15:19 | Diagnostic Imaging Report ---
EXAMINATION: CHEST XRAY POST PROCEDURE INDICATION: Status post right thoracentesis. COMPARISON: Chest radiograph 04/18/2018. FINDINGS: TUBES and LINES: Left apical chest tube in unchanged position. Left approach central venous catheter, stable with tip projecting near the expected brachiocephalic confluence. LUNGS: Low lung volumes which decreases sensitivity and specificity for pathology. There is perihilar fullness and indistinctness of the pulmonary vasculature. Patchy opacities at the lung bilateral bases. PLEURA: Small bilateral pleural effusions. Unchanged small left apical pneumothorax. HEART AND MEDIASTINUM: The cardiomediastinal silhouette is unremarkable, partially obscured. BONES AND SOFT TISSUES: No acute osseous lesion. Left axillary surgical clips. IMPRESSION: No evidence of right-sided pneumothorax status post thoracentesis. Pulmonary edema with small bilateral pleural effusion. Stable small left apical pneumothorax with chest tube in place. Signed by: Dr. Tenzin Stapleton MD on 04/18/2018 3:16 PM
--- NOTE | 2018-04-18 16:03 | NUR ---
Pt taken to CT via WC on Tele with continuous pulse ox and chest tube drainage system to water seal. Report given to Clementina WILLINGHAM, instructed to continue -20 cm suction per MD Gonzalez's orders. Pt denies pain, SOB, NVD, dizziness, blurred vision.
--- NOTE | 2018-04-18 17:19 | NUR ---
Patient arrived to the unit via wheelchair. Patient transferred from ICU to 105. Left sided chest tube noted to suction. Dressing clean and dry. No shortness of breath noted. Patient transferred from chair to bed. O2 at 2L NC. Lung ramirez diminished to auscultation. No c/o pain when taking a deep breath. Bowel sounds present. Left sided IJ in place. Dressing clean and dry. Spouse at bedside
[2018-04-18] MEDS: PANTOPRAZOLE 40 MG 10ML VIAL IV SCH (17:30)
[2018-04-18] MEDS ORDERED: LORAZEPAM 1 MG TAB PO PRN (18:15)
--- NOTE | 2018-04-18 19:19 | NUR ---
received patient aaox3, stable condition. chest tube in place, drainage system to wall suction. no needs verbalized at this time, will continue to monitor the patient. bed locked and in lowest position, call light within easy reach.
[2018-04-19] VITALS (7 sets, daily range): BP systolic 96–123; BP diastolic 59–70
[2018-04-19] MEDS: LEVOTHYROXINE SODIUM 100 MCG TAB PO SCH (05:22)
[2018-04-19] MEDS: HYDROCODONE/APAP 7.5MG-325MG 1 EA TAB PO PRN ×2 (05:23→15:16)
[2018-04-19 05:30] LABS: HEMATOCRIT 31.5 % (34.2-44.1); HEMOGLOBIN 10.6 g/dL (12.0-16.0); MEAN CORPUSCULAR HEMOGLOBIN 29.5 pg (28-32); MEAN CORPUSCULAR HGB CONC 33.7 g/dL (31-35); MEAN CORPUSCULAR VOLUME 87.7 fL (81-99); PLATELET COUNT 379 x10e3/uL (140-360); RED BLOOD COUNT 3.59 x10e6/uL (3.6-5.1); RED CELL DISTRIBUTION WIDTH 12.6 % (11.7-14.4)
[2018-04-19 05:50] LABS: ALBUMIN 2.6 g/dL (3.5-5.0); ALBUMIN/GLOBULIN RATIO 0.6 (0.8-2.0); ANION GAP 15.7 mmol/L (8-16); CALCIUM 10.1 mg/dL (8.4-10.2); CREATININE, SERUM 1.71 mg/dL (0.57-1.11); POTASSIUM 3.7 mmol/L (3.5-5.1)
--- NOTE | 2018-04-19 06:35 | Diagnostic Imaging Report ---
EXAMINATION: CHEST SINGLE (PORTABLE) INDICATION: Status post right thoracentesis. COMPARISON: Chest radiograph 04/18/2018. FINDINGS: TUBES and LINES: Left apical chest tube in unchanged position. Left approach central venous catheter, stable with tip projecting near the expected brachiocephalic confluence. LUNGS: Low lung volumes which decreases sensitivity and specificity for pathology. There is perihilar fullness and indistinctness of the pulmonary vasculature. Patchy opacities at the lung bilateral bases. PLEURA: Small bilateral pleural effusions. Previous trace left apical pneumothorax is not well visualized. HEART AND MEDIASTINUM: The cardiomediastinal silhouette is unremarkable, partially obscured. BONES AND SOFT TISSUES: No acute osseous lesion. Left axillary surgical clips. IMPRESSION: No evidence of right-sided pneumothorax status post thoracentesis. Trace left apical pneumothorax is less conspicuous. Left chest tube in place. Pulmonary edema with small bilateral pleural effusions. Signed by: DR. Boris Garcia MD on 04/19/2018 6:32 AM
--- NOTE | 2018-04-19 07:25 | NUR ---
Received patient and walking rounds complete. Patient resting in bed at this time no signs of distress. Bed in lowest position, wheels locked, side rails up x2, call light in reach. Will continue to monitor.
[2018-04-19] MEDS: SALMETEROL/FLUTICASONE 250/50 INH SCH ×2 (07:45→18:35)
[2018-04-19] MEDS: FUROSEMIDE INJ 10 MG/ML 4 ML VIAL IV SCH (08:02)
[2018-04-19] MEDS: SPIRONOLACTONE 25 MG TAB PO SCH (08:02)
[2018-04-19] MEDS: METOPROLOL TARTRATE 50 MG TAB PO SCH ×3 (08:03→17:42)
[2018-04-19] MEDS: ANASTROZOLE 1 MG TAB PO SCH (08:03)
[2018-04-19] MEDS: DRONABINOL 2.5MG PO SCH (08:03)
[2018-04-19] MEDS: LOSARTAN POTASSIUM 25 MG TAB PO SCH (08:03)
[2018-04-19] MEDS: ALPRAZOLAM 0.25 MG TAB PO SCH (08:04)
--- NOTE | 2018-04-19 08:50 | NUR ---
Patient left to radiology no signs of distress.
--- NOTE | 2018-04-19 09:12 | NUR ---
Patient back from radiology at this time.
--- NOTE | 2018-04-19 09:45 | NUR ---
Visit made by the Spiritual Care Department Pastoral Visitor, Fabrizio Rosario. PV provided pastoral presence, prayer, hospitality, and supportive listening. Pastoral Visitor informed pt/family of the scope of [employer] and availability. LUCILA DEE Acid Strength Inspector Spiritual Care Department O: [phone] Pager: [phone] ([phone] number calling from)
--- NOTE | 2018-04-19 10:22 | Diagnostic Imaging Report ---
EXAM: CT Chest WITH contrast INDICATION: Breast cancer, shortness of breath, chest tube COMPARISON: 04/19/2018 chest x-ray, no report available TECHNIQUE: The Chest was scanned utilizing a multidetector helical scanner after administration of IV contrast. Coronal and sagittal reformations were obtained. Reformatted axial MIP images were obtained and reviewed. IV CONTRAST: 100 mL Isovue-370 COMPLICATIONS: None RADIATION DOSE: Total DLP: 1220 mGy*cm Estimated effective dose: (DLP x 0.015 x size factor) mSv CTDIvol has been reviewed. It is below the limits set by the Radiation Protocol Committee (RPC). Appropriate CT dose reduction techniques were utilized. FINDINGS: Limitations: Patient unable to lie supine. Decubitus imaging and extensive quantum mottle secondary to body habitus moderately degrades image quality. Lines and Tubes: Left thoracostomy tube present. Left IJ central venous catheter terminating distal left brachiocephalic vein. Lower Neck: Visualized thyroid gland grossly unremarkable. Heart and Great Vessels: The aorta and main pulmonary artery measure 26 and 26 mm. respectively. No significant pericardial effusion. Examination not tailored for pulmonary artery evaluation. No significant vascular calcifications. Lymph Nodes: Generalized haziness of the mediastinum and body habitus limits evaluation. No definite mediastinal adenopathy. Left axillary dissection changes. Lungs: Trace left and small right pleural effusion. Questionable mild nodularity medial left lower lobe image 27. Pleural fluid on the right extends into the fissures. Septal thickening and scattered groundglass and alveolar opacities are present, asymmetric to the lung bases. There is a tiny pneumothorax at the anterior aspect of the left lung base image 33. Upper abdomen: Cyst right kidney. Liver in adequately evaluated. Bones and Soft Tissues: Postsurgical changes left chest wall poorly evaluated due to decubitus imaging. Surgical changes additionally present right breast, partially visualized. Subcutaneous gas left chest wall. IMPRESSION: 1. Significantly limited exam secondary to body habitus and decubitus imaging. 2. Left thoracostomy tube with tiny pneumothorax anteriorly in the left lung base. 3. Small left and [id number] right pleural effusions, unknown etiology. Given questionable nodularity on the left, malignant effusions possible. 4. Pleural effusions with septal thickening and scattered groundglass and alveolar opacities suggest a component of volume overload. Superimposed infectious process or lymphangitic spread of malignancy not excluded given history. More focal areas of consolidation such as in the left upper lobe image 27 and right lower lobe precludes exclusion of underlying metastatic disease. 5. Postsurgical changes inadequately evaluated. Signed by: Dr. Killian Camargo MD on 04/19/2018 10:19 AM
--- NOTE | 2018-04-19 10:44 | NUR ---
Patient A/O X3, even respirations on 2LNC. No complaints of pain or discomfort at this time. Chest tube placed to continuous suction, taped. Dressing dry/intact. Left IJ patent and intact. Bowel sounds present. Will continue to monitor.
[2018-04-19] MEDS: FUROSEMIDE 40 MG TAB PO SCH (11:15)
[2018-04-19] MEDS ORDERED: SODIUM CHLORIDE 0.9% 50ML 50 ML ONE (11:39)
[2018-04-19] MEDS ORDERED: IOPAMIDOL 370 MG/ML 200 ML INFUS..BTL INJ ONE (11:39)
[2018-04-19] MEDS: HYDROMORPHONE 2MG/ML 2 MG/ML ML IV PRN (16:59)
[2018-04-19] MEDS: PANTOPRAZOLE 40 MG 10ML VIAL IV SCH (17:42)
--- NOTE | 2018-04-19 19:08 | NUR ---
RECEIVED PATIENT RESTING IN BED, WITH AT SIDE. AAOX3, STABLE CONDITION. NO NEEDS VOICED AT THIS TIME. BED LOCKED AND IN LOWEST POSITION, CALL LIGHT WITHIN EASY REACH. WILL CONTINUE TO MONITOR THE PATIENT CLOSELY.
--- NOTE | 2018-04-19 20:20 | NUR ---
PATIENT C/O NASAL PASSAGE BEING DRY FROM NC. SPOKE WITH RT, RT WILL CONNECT HUMIDIFIER.
[2018-04-20] VITALS (8 sets, daily range): BP systolic 95–131; BP diastolic 53–67
[2018-04-20] MEDS: HYDROCODONE/APAP 7.5MG-325MG 1 EA TAB PO PRN ×4 (05:45→21:17)
[2018-04-20] MEDS: LEVOTHYROXINE SODIUM 100 MCG TAB PO SCH (05:45)
--- NOTE | 2018-04-20 07:15 | NUR ---
Received patient and walking rounds complete. Patient awake resting in bed at this time, no signs of distress. Bed in lowest position, wheels locked, side rails up x2, call light in reach. Will continue to monitor.
[2018-04-20 07:16] LABS: ALBUMIN 2.7 g/dL (3.5-5.0); ALBUMIN/GLOBULIN RATIO 0.8 (0.8-2.0); ANION GAP 17.1 mmol/L (8-16); CALCIUM 9.6 mg/dL (8.4-10.2); CREATININE, SERUM 1.17 mg/dL (0.57-1.11); POTASSIUM 5.1 mmol/L (3.5-5.1)
[2018-04-20] MEDS: SALMETEROL/FLUTICASONE 250/50 INH SCH ×2 (07:20→20:00)
--- NOTE | 2018-04-20 07:26 | NUR ---
Spoke to Lab regarding patients elevated potassium.
--- NOTE | 2018-04-20 07:55 | NUR ---
Unable to get blood return from her central line for an attempt to redraw her potassium level. Will inform MD when rounds
[2018-04-20] MEDS: LOSARTAN POTASSIUM 25 MG TAB PO SCH (07:57)
[2018-04-20] MEDS: METOPROLOL TARTRATE 50 MG TAB PO SCH ×2 (07:58→17:00)
[2018-04-20] MEDS: FUROSEMIDE 40 MG TAB PO SCH (08:09)
[2018-04-20] MEDS: ANASTROZOLE 1 MG TAB PO SCH (08:09)
[2018-04-20] MEDS: SPIRONOLACTONE 25 MG TAB PO SCH (08:09)
--- NOTE | 2018-04-20 10:09 | NUR ---
Patient A/O X3. Diminished lung sounds, 2LNC. Bowel sounds active, last BM 04/18/18. Patient is ambulatory with standby assist. Voids in bedside commode. 1+ nonpitting BLE in the foot. Left IJ in place, dressing intact. Chest tube removed yesterday, dressing intact. Skin intact. No complaints of pain or discomfort at this time. Will continue to monitor.
--- NOTE | 2018-04-20 11:30 | NUR ---
Ambulated patient. O2 saturation was 80% off oxygen and then 91% with 2LNC when rested.
[2018-04-20] MEDS: PANTOPRAZOLE 40 MG 10ML VIAL IV SCH (17:38)
--- NOTE | 2018-04-20 21:29 | NUR ---
spoke to admitting MD regarding medication orders. orders received and implemented.
[2018-04-20] MEDS: LACTULOSE SYRUP 20 GM/30 ML UDC PO ONE (22:02)
[2018-04-20] MEDS: LORAZEPAM 1 MG TAB PO PRN (22:03)
[2018-04-21] VITALS (7 sets, daily range): BP systolic 87–125; BP diastolic 54–78
[2018-04-21] MEDS: LEVOTHYROXINE SODIUM 100 MCG TAB PO SCH (05:32)
[2018-04-21] MEDS: LACTULOSE SYRUP 20 GM/30 ML UDC PO ONE (05:32)
--- NOTE | 2018-04-21 08:30 | NUR ---
MD THAO INTO SEE PT, DISCUSSED POC, PT SITTING ON SIDE OF BED, VERBALIZED UNDERSTANDING
[2018-04-21] MEDS: ANASTROZOLE 1 MG TAB PO SCH (09:00)
[2018-04-21] MEDS: SPIRONOLACTONE 25 MG TAB PO SCH (09:00)
[2018-04-21] MEDS: LOSARTAN POTASSIUM 25 MG TAB PO SCH (09:00)
[2018-04-21] MEDS: SALMETEROL/FLUTICASONE 250/50 INH SCH (09:17)
[2018-04-21] MEDS: FUROSEMIDE 40 MG TAB PO SCH (09:30)
[2018-04-21] MEDS: METOPROLOL TARTRATE 50 MG TAB PO SCH (09:30)
[2018-04-21] MEDS: LORAZEPAM 1 MG TAB PO PRN (09:30)
--- NOTE | 2018-04-21 09:40 | Discharge Summary ---
Nguyen Del Castillo is a 57-year-old black female admitted with recurrent pleural effusion. For detailed history and physical, please review my dictation dated April 11. On admission, routine lab investigations were done consisting of CBC which showed a hemoglobin of 14.1, hematocrit of 43.4, white count of 3700, platelets were 325,000. Chemistry showed a sodium of 133, potassium 3.8, chloride is 90, CO2 29, BUN 15, and creatinine 1.3. Calcium was high at 11.2. Total protein is 9.8, albumin 3.9, globulin is 5.9. The patient's calcium with hydration came down to 10.3 on April 12, subsequently was down to 9.6 on April 20. The globulins also have dropped down to 3.6, albumin to 2.7, total protein 6.3. The patient had thoracentesis done on the left lung. The LDH was 191. Pathology is still pending. The pathology of April 07 was reported suspicious for malignancy, estrogen receptor positivity. The patient had VATS by Dr. Bishnu Santacruz on the left side on April 15. 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 The pathology is still pending. The patient's left chest tube was taken out. The right thoracentesis was done. Subsequently being discharged today on home O2. The patient also at the present time is on: 1. Synthroid 100 mcg a day. 2. Advair 250 per 50 one inhalation a day. 3. Losartan 50 mg a day. 4. Metoprolol 50 mg twice a day. 5. Lasix 40 mg twice a day. The Arimidex has been discontinued. The patient will be started on exemestane and a BRM, however, the patient will have a baseline PET scan and approval for the biological response modifiers as these are extremely expensive. This has been discussed at length with the patient and the family multiple times. The patient will be seen this coming at 12:30 for a conference. Job#: [id number]
[2018-04-21] MEDS: METHYLPREDNISOLONE SOD SUCC 125 MG/2ML VIAL IV SCH ×2 (12:29→18:45)
--- NOTE | 2018-04-21 14:18 | Progress Note ---
DATE: Progress note on behalf of Dr. Gonzalez. SUBJECTIVE: The patient is a 57-year-old, complaining of coughing. Breathing okay. No chest pains. OBJECTIVE VITAL SIGNS: Afebrile, pulse 95, blood pressure 105/67, respiratory rate 19, oxygen saturation 91%. HEENT: Atraumatic. NECK: No tenderness. CHEST: Decreased breath sounds in both sides. There is left chest tube present. HEART: No murmurs. ABDOMEN: Soft. EXTREMITIES: There is left pedal edema. LABS: Sodium 134, BUN 36, creatinine 1.71. Hemoglobin 10.6. Rest of the labs unremarkable. IMPRESSION 1. Metastatic breast cancer. 2. Bilateral pleural effusion with malignant pleural effusion, status post left VATS and pleurodesis. 3. Shortness of breath. 4. Chronic heart failure. 5. Acute kidney injury. RECOMMENDATION: To continue with a chest tube, the current approach symptomatic medication. Job#: [id number] RTPk
--- NOTE | 2018-04-21 14:18 | NUR ---
Nutrition Screen Note RD Recommendation for Physician: - Continue 2 gm Na diet as ordered Plan of Care: RD following, monitoring for tolerance and adequacy Nutrition reason for involvement: Follow up Primary Diagnose(s): 1. Bilateral pleural effusions. 2. Patient had mastectomy for breast cancer. 3. Diastolic heart failure. 4. Obesity. PMH: HTN, hypercholesterolemia, breast cancer, diastolic heart failure, obesity Ht: 68in Wt: 261lb BMI: 39.7kg/m2 IBW: 140lb RD Assessment: 04/21: Pt seen for follow up. Pt discussed during am rounds. Pt reports fair appetite and po intake currently, pt was previously eating 75-100% of meals. Noted Ensure Enlive at bedside, pt states that she started drinking it this am and has received 2 today so far- tolerating well. Pt denies any N/V/C/D. Labs and meds noted. LBM 04/21. Chart reviewed. Will monitor and continue to follow. (04/14/2018) Chart reviewed. Labs and meds reviewed. 57yo F, who is admitted for SOB. Visited pt in the room. Pt reports good appetite with 100% recorded meal intake since admission. No GI complains noted. LBM 04/11, notified TARSHA Weber for pts request of stool softener. Pt denies any chewing or swallowing difficulty. 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 Will continue to monitor and follow. Current Diet: 2 gm Na diet Malnutrition Evaluation (04/14/2018) The patient does not meet criteria for a specified degree of malnutrition at this time. Will re-evaluate at follow-up as appropriate. Diet Education Needs Assessment: Diet education not indicated. Nutrition Care Level: low Signed: Mary Almanza RD, LD, [facility]
--- NOTE | 2018-04-21 15:02 | NUR ---
CM SPOKE TO PATIENT AT BEDSIDE REGARDING DISCHARGE PLAN AND HOME O2 EVALUATION. PATIENT VERBALLY AGREED THAT HER MD SPOKE TO HER ABOUT HOME O2 NEEDS. PATIENT GIVEN CHOICES FOR HOME O2 COMPANIES. PATIENT CHOSE [facility] FOR HER OXYGEN SERVICES. CHOICE LETTER SIGNED AND PLACED IN CHART. PATIENT VERBALLY UNDERSTANDS THAT OXYGEN MUST BE DELIVERED AT BEDSIDE PRIOR TO DISCHARGE. CLINICAL SENT TO [facility] AT: (FAX) [phone] (PHONE) [phone] RN NOTIFIED OF INITIATION FOR HOME O2 AND PATIENT TO HAVE TANKS AT BEDSIDE PRIOR TO DISCHARGE.
--- NOTE | 2018-04-21 17:18 | NUR ---
CM SPOKE WITH OTTONIEL WITH [facility], STATES HOME O2 IS ON TRUCK FOR DELIVERY , PT NOTIFIED
[2018-04-21] MEDS ORDERED: PREDNISONE20 MG PO (17:47)
[2018-04-21] MEDS ORDERED: FUROSEMIDE 40 MG TAB PO SCH (18:00)
--- NOTE | 2018-04-21 18:46 | NUR ---
TELEPHONED MD Kirk TAVERAS TO CLARIFY DRESSING CHANGES BEFORE DISCHARGE, AWAITING CALL BACK
--- NOTE | 2018-04-21 19:34 | NUR ---
SPOKE WITH OTTONIEL WITH [facility] TO CLARIFY HOME O2 DELIVERY, STATES HE "SPOKE WITH UROLOGIST PHYSICIAN A FEW HOURS AGO AND STATED HE WOULD BE HERE BY 8PM, LATEST 830PM",
--- NOTE | 2018-04-21 20:00 | NUR ---
Patient visited during nursing rounds. Patient alert and oriented x 3. at bedside. Pt aware will be discharged tonight. Waiting on home O2 tank to be delivered in room. [facility] delivery en route to the hospital and will aid in installation of home O2. Pt sitting on bedside chair with 2L NC. Call dong within reach.
--- NOTE | 2018-04-21 20:30 | NUR ---
Left IJ (central line) taken out per Dr. Anderson order prior to discharge home tonight. Telemetry (#12) discontinued and box and wires returned to tele office.
--- NOTE | 2018-04-21 20:35 | NUR ---
Patient understood discharge instructions and papers signed by at bedside.
[2018-04-21] MEDS ORDERED: METOPROLOL TARTRATE 50 MG TAB PO SCH (21:00)
--- NOTE | 2018-04-21 21:00 | NUR ---
Patient received home O2 tank and was connected on 2L on O2 tank. Patient escorted via wheelchair out by TARSHA Abreu. drove patient home on private vehicle. Patient brought home d/c papers and d/c scripts. Patient left in stable condition.
== END 2018-04-21 21:00 | disposition home or self-care (01) | DRG 163 ==
LOC: ER 11:50 → ERHOLD 14:07 → MED/SURG2 15:15 → MED/SURG 18:05 → MED/SURG2 18:26 → ICU 04-15 17:19 → MED/SURG 04-18 16:16
PROVIDERS: ADMIT Internal Medicine Medical Oncology; ATTEND Internal Medicine Medical Oncology
PROC: 0W9B30Z Drainage of Left Pleural Cavity with Drainage Device, Percutaneous Approach (ICD-10-PCS; principal; 2018-04-11)
PROC: 0BBP4ZZ Excision of Left Pleura, Percutaneous Endoscopic Approach (ICD-10-PCS; 2018-04-15)
PROC: 0W993ZX Drainage of Right Pleural Cavity, Percutaneous Approach, Diagnostic (ICD-10-PCS; 2018-04-18)
DX: C78.2 Secondary malignant neoplasm of pleura (principal); J96.91 Respiratory failure, unspecified with hypoxia; I50.42 Chronic combined systolic (congestive) and diastolic (congestive) heart failure; N17.9 Acute kidney failure, unspecified; E87.1 Hypo-osmolality and hyponatremia; C77.1 Secondary and unspecified malignant neoplasm of intrathoracic lymph nodes; J91.0 Malignant pleural effusion; I11.0 Hypertensive heart disease with heart failure; E78.00 Pure hypercholesterolemia, unspecified; E03.9 Hypothyroidism, unspecified; E66.9 Obesity, unspecified; Z68.39 Body mass index [BMI] 39.0-39.9, adult; Z88.0 Allergy status to penicillin; Z82.49 Family history of ischemic heart disease and other diseases of the circulatory system; Z79.82 Long term (current) use of aspirin; Z90.12 Acquired absence of left breast and nipple; Z17.0 Estrogen receptor positive status [ER+]; Z85.3 Personal history of malignant neoplasm of breast; Z92.21 Personal history of antineoplastic chemotherapy; Z92.3 Personal history of irradiation; Z99.81 Dependence on supplemental oxygen; R00.0 Tachycardia, unspecified
CPT/HCPCS: 32555; 32557; 36415; 71045; 71046; 71260; 74470; 76604; 80048; 80053; 81001; 82550; 82553; 82945; 82948; 83615; 83880; 83986; 84157; 84484; 85007; 85025; 85027; 85610; 85730; 87070; 87205; 88112; 88305; 88342; 93005; 94664; 96360; 97139; 99284; C1729; C1769; J1100; J1885; J1940; J1956; J2001; J2250; J2270; J2370; J2405; J2930; J7030; Q9967